=== PATIENT | female | born 2000 | race Caucasian/White ===

== ENCOUNTER 2024-05-09 11:48 | Outpatient (REF) | payer MEDICAID, SELFPAY ==
[2024-05-09 13:28] LABS: MANUAL DIFF FLAG NO
[2024-05-09 13:33] LABS: Basophils Percent Auto 0.5 % (0-2); Eosinophils Absolute Auto 0.2 X10*3/uL (0.0-0.4); Eosinophils Percent Auto 1.9 % (0-4); Hematocrit 38.4 % (37.0-47.0); Hemoglobin 11.8 g/dl (12.0-16.0); Imm Gran Abs Auto 0.03 X10*3/uL (0.00-0.03); Imm Gran Pct Auto 0.4 % (0.0-0.4); Lymphocytes Absolute Auto 2.7 X10*3/uL (1.2-4.9); Lymphocytes Percent Auto 35.5 % (20-40); Mean Corpuscular HGB Conc 30.7 g/dl (31.0-35.0); Mean Corpuscular Hemoglobin 23.8 pg (27.0-33.0); Mean Corpuscular Volume 77.6 fL (80.0-98.0); Mean Platelet Volume 9.8 fL (9.4-12.3); Monocytes Absolute Auto 0.6 X10*3/uL (0.1-1.2); Monocytes Percent Auto 7.3 % (2-11); Neutrophils Absolute Auto 4.2 x10*3/uL (2.0-8.3); Neutrophils Percent Auto 54.4 % (45-73); Platelet Count 331 X10*3/uL (160-400); Red Blood Count 4.95 X10*6/uL (4.20-5.50); Red Cell Distribution Width 19.6 % (11.0-16.0); White Blood Count 7.7 X10*3/uL (4.8-10.8)
[2024-05-09 13:46] LABS: Estimated Average Glucose 111 mg/dL; Hemoglobin A1C 108.3665 umol/L; Hemoglobin A1c % 5.5 % (<6.0)
[2024-05-09 14:02] LABS: Alanine Aminotransferase 43 U/L (0-31); Albumin Level 4.1 g/dL (3.5-5.0); Alkaline Phosphatase 100 U/L (39-117); Anion Gap 11 (12-20); Aspartate Amino Transferase 28 U/L (5-31); Bilirubin Total 0.5 mg/dL (0.0-1.0); Blood Urea Nitrogen 12 mg/dL (9-16); Calcium 9.9 mg/dL (8.4-10.2); Carbon Dioxide 26 mmol/L (22-29); Chloride 106 mmol/L (96-108); Cholesterol 160 mg/dL (<200); Estimated Glomerular Filt Rate > 60; Glucose Random 90 mg/dL (60-115); HDL Cholesterol 52 mg/dL (>40); LDL Cholesterol Calculated 96 mg/dL (<100); Potassium 3.9 mmol/L (3.3-5.1); Sodium 139 mmol/L (135-145); Total Protein 7.3 g/dL (6.5-8.0); Triglycerides 61 mg/dL (<150)
[2024-05-09 14:05] LABS: Thyroid Stimulating Hormone 1.22 uIU/mL (0.32-4.0)
== END 2024-05-09 11:49 | disposition home or self-care (01) ==
LOC: HO.10HDL 11:48
PROVIDERS: Visit Provider Internal Medicine
DX: B36.0 Pityriasis versicolor (principal); D64.9 Anemia, unspecified; E66.01 Morbid (severe) obesity due to excess calories
CPT/HCPCS: 36415; 80053; 80061; 83036; 84443; 85025

== ENCOUNTER → 2024-10-12 13:14 | Outpatient (BNVA) | payer MEDICAID, SELFPAY | PROVIDERS: PCP Family Medicine; Visit Provider Surgery ==

== ENCOUNTER 2024-10-22 08:03 | Outpatient (AMB) | payer MEDICAID, SELFPAY ==
--- NOTE | 2024-10-22 12:53 | A.OFFVIS_ITS ---
VS Expanded 10/22/24 13:02 Height 5 ft 4.5 in Weight 293 lb BMI 49.5 Body Fat % 47.8 Body Fat Mass 140 Fat Free Mass 153 Visceral Fat Rating 14 Body Water % 37.5 Body Water Mass 110 Basal Metabolic Rate/Score 2,242 Intake Visit Reasons: [employer] BMI 49.5 Allergies No Known Allergies Allergy (Verified 10/22/24 12:53) Medication List - Last Reconciled 10/22/24 by Brandon Fernandez MD famotidine 20 mg PO DAILY phentermine 37.5 mg PO DAILY HPI HPI [employer] BMI 49.5: Details: Start time: 12.52pm, End time: 1.37pm ?I spent 40 minutes speaking with the patient on the phone plus an additional 5 minutes reviewing and updating records for a total of 45 minutes HPI Comments Details: Previous weight loss efforts: Phentermine lost 20lbs Wakes up: 7.30am, Sleeps: 11am Breakfast: skips Lunch: none Dinner: 4pm (rice, beans, chicken) Snacks: none Exercise: none Fluids: Coffee/tea: none, soda: none, juice: 1/day, ETOH: 2/wk (Tequila 3 shots, 4-5 mixed drinks with orange juice per day) PFSH Medical History (Updated 10/22/24 @ 12:57 by Brandon Fernandez MD) Anxiety GERD (gastroesophageal reflux disease) Morbid obesity History of rupture of uterus Surgical History (Updated 10/12/24 @ 13:50 by Josie Valentine CMA) Hx of hand surgery Hx of section Hx of wisdom tooth extraction Hx of cholecystectomy Family History (Updated 10/12/24 @ 13:52 by Josie Valentine CMA) Mother Endometriosis Father Family history unknown Son No problems noted. Son No problems noted. Social History (Updated 10/12/24 @ 13:52 by Josie Valentine CMA) Alcohol intake: current Alcohol intake frequency: holidays/special occasions only Tobacco use type: Smokeless Tobacco e-Cigarette/Vaping Use: Currently Using Telehealth Telehealth Telehealth Platform: Telephone Location of provider rendering services: practice address Location of patient: address on file Patient Identification confirmed using: Name, : Yes Telehealth method: voice only Patient verbally consented to treatment: Yes Patient verbally consented to billing insurance company: Yes Patient informed of any privacy concerns related to visit: Yes Minutes spent on Phone/Video with Pt.: 45 Assessment & Plan Assessment & Plan (1) Morbid obesity: Code(s): E66.01 - Morbid (severe) obesity due to excess calories Category: Medical Plan: 1.? Plan for lap sleeve gastrectomy. If diaphragmatic or ventral hernias are present at time of surgery, these will be repaired laparoscopically as well. I emphasized the importance of close follow-up, adherence to instructions and good communication. The surgery does not replace the need to change your lifestlyle which is the cause of the obesity problem. The surgery provides the motivation to try again to change your lifestyle, it reduces the appetite and make the transition to a better lifestyle easier and doubles the amount of weight you would lose compared to doing the lifestyle change without the surgery. You will need to be on a liquid diet with protein shakes for 2 weeks before surgery to maximize weight loss and boost your nutritional status to recover better from surgery and also for the first two weeks after surgery to let the stomach heal before we introduce other foods. After the first 2 weeks we will introduce protein bars and soft foods like scrambled eggs, cottage cheese and yogurt and after the 6th week will introduce meat, fish and cooked vegetables in small amounts. Over time you should be able to eat everything in small amounts. Side effects like nausea, vomiting, heartburn or abdominal pain are not common in the practice unless you are not following in the practice. This operation requires lifetime commitment to following in our practice and communication with me. You will much less weight and experience side effects if you don?t communicate or not following in the practice. Complications are rare and in our practice is about 1/10 of the national average. However, you can develop bleeding that may require transfusion (hasn?t happened for year in the practice), you may from complications (we did not have any deaths in the practice) and infections. Infections are usually a result of breakdown in communication or not understanding or following directions correctly. They are difficult to treat, they can happen during the first 6 weeks, they may require to be in the hospital for weeks or even months, not being able to eat by mouth and you may have drains and surgeries to try and correct the issue. Other risks and complications include possible conversion to an open procedure, leaks, small bowel obstruction, blood clots, cardiac, or pulmonary complications, as jail complications such as ulcers, insufficient weight loss and vitamin deficiencies. 2. Nutritional counseling. Start with 2 CELEBRATE REBUILD protein (buy at hospital's gift shop) shakes (ONE scoop EACH in 8oz low fat unsweetened almond milk each) at 9am-11am and 12pm-2pm, 1 protein bar (CELEBRATE protein bars, buy at [facility] [employer] [facility]) at 3pm-5pm, dinner at 6pm (10 forks of protein and 10 forks of salad/vegetables) AND one more protein bar after dinner at 8pm-10pm. So you do 2 protein shakes, 2 protein bars and one meal per day. Meal to include lean meat (beef, fish, pork, turkey, chicken), or latvian yogurt, or egg whites, or beans with a salad with olive oil and fruits (berries, pears, apples, kiwi). Avoid salt, breads, potatoes, rice, pasta, desserts. 3. Each shake would be drunk slowly, like coffee in a period of 2 hours. 4. Cut each bar in 4 pieces and eat each piece in 30min ?to make each bar last 2 hours. 5. I emphasized the importance of measuring accurately the food portion and measure it when serving the food in plate 6. The meal portions include 10 full-size forks of meat and 10 full-size forks of salad. You always eat the meat portion but you can replace up to 5 forks for salad/vegetables with rice, potatoes or pasta, or a fruit ?if you like. The less you do it the better weight loss will be. 7. One full-size fork is what it can be scooped on the fork without falling aside and not what can be bit with the fork. Use regular forks like those you find in a typical restaurant. 8.? Please buy the body composition scale we discussed and send me weight measurements as soon as possible and then once a week. Always include your diet and exercise plan. 9. Start stationary bike at a resistance level of 4.0 Increase level by 1.0 every 3 min to a max level of 10.0. Stay at this level for 3 min and then return to level 4.0 and repeat same steps until 400 calories are burned, 5 days per week. Goal is to burn 2000 calories per week on exercise 10. The best choice would be to purchase a stationary bike, elliptical or treadmill at home that can track calories. Let me know if you do so I can give you an exercise plan. 11.?It is important of avoiding and for at least 18 months postoperatively and has been discussed at the infosession. 12. Goal is to lose at least 1.5-2lbs per week 13. Goal to lose 10% of your weight before surgery, which is about 29lbs. Ultimate weight goal: 264lbs before surgery 14. Please follow the diet plan exactly without any change. If you don't like something about the plan or you feel hungry you need to communicate with me so I can help you revise the plan. You should not change the plan yourself. 15. To be scheduled for EGD on 11/01/2024 due to the history of GERD. The possibility of biopsies was discussed. Patient needs to avoid use of NSAIDs and aspirin for 1 week prior to EGD. You must be on liquids only the day before your endoscopy. Risks of perforation and bleeding was discussed with the patient. This will be an outpatient procedure with IV sedation. Orders: Orders Insulin Today E66.01 - Morbid (severe) obesity due to excess calories, K21.9 - Gastro-esophageal reflux disease without esophagitis Hemoglobin A1c Today E66.01 - Morbid (severe) obesity due to excess calories, K21.9 - Gastro-esophageal reflux disease without esophagitis H Pylori Breath Test Today E66.01 - Morbid (severe) obesity due to excess calories, K21.9 - Gastro-esophageal reflux disease without esophagitis Complete Blood Count Auto Diff Today E66.01 - Morbid (severe) obesity due to excess calories, K21.9 - Gastro-esophageal reflux disease without esophagitis Lipid Panel Today E66.01 - Morbid (severe) obesity due to excess calories, K21.9 - Gastro-esophageal reflux disease without esophagitis IRON PROFILE Today E66.01 - Morbid (severe) obesity due to excess calories, K21.9 - Gastro-esophageal reflux disease without esophagitis Vitamin B12 and Folate Today E66.01 - Morbid (severe) obesity due to excess calories, K21.9 - Gastro-esophageal reflux disease without esophagitis C Reactive Protein Today E66.01 - Morbid (severe) obesity due to excess calories, K21.9 - Gastro-esophageal reflux disease without esophagitis Vitamin B1 Today E66.01 - Morbid (severe) obesity due to excess calories, K21.9 - Gastro-esophageal reflux disease without esophagitis US abdomen comp w elastography Today E66.01 - Morbid (severe) obesity due to excess calories, K21.9 - Gastro-esophageal reflux disease without esophagitis XR chest 2V Today E66.01 - Morbid (severe) obesity due to excess calories, K21.9 - Gastro-esophageal reflux disease without esophagitis Comprehensive Met. Panel Today E66.01 - Morbid (severe) obesity due to excess calories, K21.9 - Gastro-esophageal reflux disease without esophagitis Zinc Today E66.01 - Morbid (severe) obesity due to excess calories, K21.9 - Gastro-esophageal reflux disease without esophagitis Vitamin A Today E66.01 - Morbid (severe) obesity due to excess calories, K21.9 - Gastro-esophageal reflux disease without esophagitis TSH reflex Free T4 Today E66.01 - Morbid (severe) obesity due to excess calories, K21.9 - Gastro-esophageal reflux disease without esophagitis Ferritin Today E66.01 - Morbid (severe) obesity due to excess calories, K21.9 - Gastro-esophageal reflux disease without esophagitis Vitamin D 25-OH Total Today E66.01 - Morbid (severe) obesity due to excess calories, K21.9 - Gastro-esophageal reflux disease without esophagitis ECG 12 lead EKG Today E66.01 - Morbid (severe) obesity due to excess calories, K21.9 - Gastro-esophageal reflux disease without esophagitis FL upper GI w air Today E66.01 - Morbid (severe) obesity due to excess calories, K21.9 - Gastro-esophageal reflux disease without esophagitis Referrals Behavioral Health Referral E66.01 - Morbid (severe) obesity due to excess calories, K21.9 - Gastro-esophageal reflux disease without esophagitis Nutrition/Dietitian Referral E66.01 - Morbid (severe) obesity due to excess calories, K21.9 - Gastro-esophageal reflux disease without esophagitis
[2024-10-22 13:02] VITALS: BMI 49.5
== END 2024-10-22 13:38 | disposition home or self-care (01) ==
LOC: HO.HBS 08:03
PROVIDERS: PCP Family Medicine; Visit Provider Surgery
DX: E66.813 Obesity, class 3 (principal); Z68.42 Body mass index [BMI] 45.0-49.9, adult
CPT/HCPCS: 98010

== ENCOUNTER 2024-10-31 08:25 | Day surgery (SDC) | payer MEDICAID, SELFPAY ==
--- NOTE | 2024-10-30 09:08 | P.CONAN_ITS ---
Documented by User: Yanet Regan NP 10/30/24 09:08 HPI - Anesthesia Eval Consult details Narrative: 24yo F for Upper Endoscopy [facility] Active Problems Active Problems: All Active Problems Anxiety (Acute) GERD (gastroesophageal reflux disease) (Acute) Morbid obesity (Acute) Past Medical History Medical History Anxiety GERD (gastroesophageal reflux disease) Morbid obesity History of rupture of uterus Family History Family History Mother Endometriosis Father Family history unknown Son No problems noted. Son No problems noted. Surgical History Surgical History Hx of hand surgery Hx of section Hx of wisdom tooth extraction Hx of cholecystectomy Social History Social History Alcohol intake: current Alcohol intake frequency: holidays/special occasions only Patient Tobacco Use Status: Never used Tobacco Tobacco use type: Smokeless Tobacco e-Cigarette/Vaping Use: Currently Using Use of substances other than those prescribed or required for medical reasons: No Are you DNR?: No Advance Directives: No Advance Directives Information Provided: Yes Meds Allergies Allergy/AdvReac Type Severity Reaction Status Date / Time No Known Allergies Allergy Verified 10/31/24 08:48 Home Medications ?Medication ?Instructions ?Recorded ?Confirmed ?Last Taken ?Type famotidine 20 mg tablet 20 mg PO DAILY 10/22/24 10/31/24 Unknown History phentermine 37.5 mg capsule 37.5 mg PO DAILY 10/22/24 10/31/24 Unknown History Assessment and Plan Assessment Anesthesia Assessment: Chart Reviewed Documented by User: Valentina Valdovinos MD 10/31/24 09:26 PMFSH Past Medical History Medical History Anxiety GERD (gastroesophageal reflux disease) Morbid obesity History of rupture of uterus Family History Family History Mother Endometriosis Father Family history unknown Son No problems noted. Son No problems noted. Surgical History Surgical History Hx of hand surgery Hx of section Hx of wisdom tooth extraction Hx of cholecystectomy History of Problems with Anesthesia: No Social History Social History Alcohol intake: current Alcohol intake frequency: holidays/special occasions only Patient Tobacco Use Status: Never used Tobacco Tobacco use type: Smokeless Tobacco e-Cigarette/Vaping Use: Currently Using Use of substances other than those prescribed or required for medical reasons: No Are you DNR?: No Advance Directives: No Advance Directives Information Provided: Yes Meds Allergies Allergy/AdvReac Type Severity Reaction Status Date / Time No Known Allergies Allergy Verified 10/31/24 08:48 Home Medications ?Medication ?Instructions ?Recorded ?Confirmed ?Last Taken ?Type famotidine 20 mg tablet 20 mg PO DAILY 10/22/24 10/31/24 Unknown History phentermine 37.5 mg capsule 37.5 mg PO DAILY 10/22/24 10/31/24 Unknown History Exam Airway Mallampati Class: III TM Dist: >3cm Neck ROM: Full Loose/Missing/Broken Teeth: No Heart: RRR Lungs: CTA Assessment and Plan Assessment Anesthesia Assessment: Anesthesia Plan Discussed Final Anesthetic Review History of Problems with Anesthesia: No NPO: Yes ASA Class: III Final Preanesthetic Review: Meds/Allgs Chart Reviewed, Consent Obtained/Reviewed and Anes Risks/Benef Reviewed Patient Risk: Intermediate Procedure Risk: Intermediate Anesthetic Plan Anesthetic Plan: MAC: Disposition: Standard PACU
[2024-10-31 08:41] VITALS: BMI 49.7
[2024-10-31 08:48] LABS: UPreg QC Valid YES; Urine Pregnancy NEGATIVE (NEGATIVE)
[2024-10-31 09:07] VITALS: BP 105/61; PULSE 86; RESP 16; TEMP 36.3; O2SAT 97
[2024-10-31] MEDS: Lactated Ringers 1,000 ML 100 ML IVCONT (09:20)
--- NOTE | 2024-10-31 09:23 | MHC.SHP ---
Pre-Procedural Eval Section A - 24 Hr Update-Section A only Date of Service: 10/31/24 The patient is an INPATIENT: No The patient has been examined within 24 hours of the surgical procedure. The History & Physical has been completed within 30 days and I have reviewed it.: Yes Section B - Complete if H&P > 30 days Chief Complaint: Morbid (severe) obesity due to excess calories Details of Present Illness: GERD Relevant Family History (Specify if Yes): No Relevant Social History: None Present Medications: None Medical History: No relevant PMH History of Previous Operations: No relevant previous surgery Allergies: Allergies Allergy/AdvReac Type Severity Reaction Status Date / Time No Known Allergies Allergy Verified 10/31/24 08:48 Review of Systems Sugical H&P ROS: Negative: Constitution, Cardiovascular, Respiratory, Neurological, Psychiatric, Hem-Onc, Allergic/Immunologic, Gastrointestinal, Genitourinary, Musculoskeletal, Integumentary, Endocrine and Eyes/Ears/Nose/Throat Exam Surgical H&P Exam: Normal: HEENT, Normal: Heart, Normal: Lungs, Normal: Extremities, Normal: Abdomen, Normal: Skin and Normal: Neurological Plan Diagnosis/Plan: Unchanged (EGD to assess etiology of GERD. Risks of bleeding and perforation were discussed with the patient and she is in agreement with the plan.) I have reviewed the history and physical and performed a pertinent physical examination on my patient. No changes have occurred unless specified. Time Spent With Patient Time: Total time managing care of this patient today ____ minutes.
--- NOTE | 2024-10-31 09:26 | P.BOP_ITS ---
Brief Operative Note Date of Service: 10/31/24 Pre-op diagnosis: GERD Post-op diagnosis: same (& gastritis) Procedure: PROCEDURE DATE: 10/31/2024 PREOPERATIVE DIAGNOSIS: GERD POSTOPERATIVE DIAGNOSIS: ?Same as above. 1) gastritis PROCEDURE: [id number] with biopsies Surgeon: ?David Fernandez M.D.. Ph.D. Office Services Specialist: None ? Anesthesia: IV sedation Estimated blood loss: ?Minimal FINDINGS AND PROCEDURE: ? OPERATIVE INDICATIONS: ?The patient is a 24 year old female known to me who is interested in bariatric surgery. The patient has GERD. Based on this information I recommended an upper endoscopy to evaluate the patient's symptoms. Risks and complications of the surgery were discussed with the patient in advance particularly the possibility of perforation or bleeding that may require surgical intervention. The patient understood the risks and was in agreement with the plan. ? PROCEDURE: After informed consent was obtained by the patient, the patient was ?transferred to the Operating Room and was placed in the supine position.? After successful induction of IV sedation, a mouth block was inserted and the patient was placed in the left lateral decubitus position. An upper endoscopy was performed next, the oropharynx and esophagus appeared within the normal limits. There was no hiatal hernia. The z-line was smooth. Two biopsies were obtained from the distal esophagus 2-3 cm proximal to the GE junction and two additional biopsies from the GE junction. The stomach was entered and it appeared to be of normal size. There was gastritis throughout the stomach with erythema and some bile. There was no stricture or ulcer. A biopsy was obtained from the gastric fundus and the antrum. No significant bleeding was noted from any of the biopsy sites. Retroflexion of the scope confirmed a normal GE junction. The scope was then advanced into the duodenum which appeared to be normal as well. At that point the duodenum ?and the stomach were decompressed and the scope was withdrawn from the patient's mouth. The patient extubated and was transferred in stable condition to the Recovery Room for further care. I was present and performed all steps of the procedure. There were no residents to assist with this case. David Fernandez M.D., Ph.D. Surgeon: Brandon Fernandez MD Anesthesia: MAC Was an Office Services Specialist used for this Procedure?: No Estimated blood loss (mL): 0 IV fluids (mL): 400 Urine output (mL): 0 (No [place] to record output) Pathology: other (1) antrum x1, 2) fundus x1, 3) GE junction x2, 4) distal esophagus x2) Condition: stable Disposition: PACU
[2024-10-31 10:02] VITALS: BP 100/54; PULSE 92; RESP 18; TEMP 36.1; O2SAT 100
[2024-10-31 10:17] VITALS: BP 104/58; PULSE 77; RESP 16; TEMP 36.1; O2SAT 99
== END 2024-10-31 11:05 | disposition home or self-care (01) ==
PROVIDERS: Nurse Practitioner; PCP Internal Medicine; Visit Provider Surgery
PROC: 0DJ08ZZ Inspection of Upper Intestinal Tract, Via Natural or Artificial Opening Endoscopic (ICD-10-PCS; CPT 43235; principal; 2024-10-31 10:10)
DX: K21.9 Gastro-esophageal reflux disease without esophagitis (principal); E66.01 Morbid (severe) obesity due to excess calories; Z68.42 Body mass index [BMI] 45.0-49.9, adult; K29.50 Unspecified chronic gastritis without bleeding; F41.9 Anxiety disorder, unspecified; Z90.49 Acquired absence of other specified parts of digestive tract; Z79.899 Other long term (current) drug therapy; Z87.42 Personal history of other diseases of the female genital tract; Z98.890 Other specified postprocedural states
CPT/HCPCS: 43239; 81025; 88305; 88313; 88342

== ENCOUNTER → 2024-10-31 08:25 | Outpatient (BNV) | payer MEDICAID, SELFPAY | PROVIDERS: PCP Internal Medicine; Visit Provider Surgery | DX: K21.9 Gastro-esophageal reflux disease without esophagitis (principal); K29.70 Gastritis, unspecified, without bleeding | CPT/HCPCS: 43239 ==

== ENCOUNTER → 2024-11-05 10:06 | Outpatient (AMB) | payer OTHER, SELFPAY ==
--- NOTE | 2024-11-05 10:05 | MHC.WMTHER ---
Intake Intake Visit Reasons: TV BH Intake Allergies No Known Allergies Allergy (Verified 10/31/24 08:48) PFSH Medical History Anxiety GERD (gastroesophageal reflux disease) Morbid obesity History of rupture of uterus Surgical History Hx of hand surgery Hx of section Hx of wisdom tooth extraction Hx of cholecystectomy Family History Mother Endometriosis Father Family history unknown Son No problems noted. Son No problems noted. Social History Alcohol intake: current Alcohol intake frequency: holidays/special occasions only Patient Tobacco Use Status: Never used Tobacco Tobacco use type: Smokeless Tobacco e-Cigarette/Vaping Use: Currently Using Behavioral Health Assessment Weight Management Therapy Therapy Notes Details PT is a 24 years old female, who presents for initial visit to complete BH assessment as part of surgical weight loss program. Presenting Concerns Referral Source Initially referred for WMP by her PCP. WMP Provider. Reason for referral Completion of behavioral health assessment as part of process for weight-loss surgery. Precipitating Event Obesity. Living Situation Current Living Situation Rent At risk of losing current housing? No Satisfied with current living situation? Yes Comments PT lives with her 2 children. Food/Weight/Diet Expectations of change The initial goal to lose 10% of your weight before surgery, which is about 29 lbs. Ultimate weight goal: 264lbs before surgery PT started weight as of 10/12/2024: 293Lbs Most recent weight: hasn't weighed. The scale hasn't arrived yet. PT is implementing the following: Current meal plan: 2 protein shakes, 2 protein bars, and one meal per day. Hasn't started. Exercise plan: Stationary bike. History/Relationship with food Example of meals before starting the program: Breakfast: Lunch: Dinner: Snacks: Drinks/Liquids: History/Relationship with weight In the last 10 years, the patient's Lowest weight was and highest Social History Family history and relationship Single mother of 2. PT has 3 siblings on mom's side and 4 from dad's side. Parents are alive. PT reports she is very close to her mother and to siblings on mom's side. and States overall good family dynamics. Parental/Familial medical office asst obligations 2 children, she has a 2 year old and a 1 year old. Developmental history and status None. Currently WNL Social support Mother, grandmother, and providers with weight-loss surgery. Also mom, grandmother and siblings with any social issue, as well of kids' father's sister. Community support PCP. Therapist. Synagogue/Spirituality None. Cultural/Ethnic information . [place] background. Legal Involvement and History Current or historical involvement with the legal system? None reported. 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 Preferred learning style Learn by doing Currently enrolled in educational program? Yes (working towards her Associate degree in [employer].) Interested in further educational program? No Educational Interests/Skills Become a mortician. Employment Employment Status School (full-time remote.) and Other (in the process of getting a new job. ) Wants help to find employment? No Meaningful activities Family activities. Financial Situation Describe current financial situation Comfortable Financial assistance? Food Dola and Other ([facility], [employer] - [place]. ) Service Service? No Mental Health and Addiction Treatment Current/Past substance abuse? No Comments Alcohol: 1-2 times every 2 weeks. can have 5 -6 drinks. Cigarettes/Tobacco: PT vapes, uses a flavor nicotine based. Cannabis/Edibles: does Edibles 2 times at month. Current/Past addictive behavior concerns? No Psychiatric history The patient currently attends online counseling sessions every two weeks through the [facility] They began these counseling services in June 2024 to address anxiety and stress. The patient denies being prescribed any medication for their mental health concerns. The patient reports no history of crisis or inpatient treatment for mental health issues. There are no current concerns regarding suicidal ideation, self-harm, or harm to others. Medical and Physical Health Summary Additional Medical History not covered in history None additional. Sexual History concerns None reported. Physical exam in the last year? Yes Pain Screening Current pain? No Pain in the last few months? No Questionnaires PHQ-9 Over the last 2 weeks, how often have you been bothered by any of the following problems? 1. Little interest or pleasure in doing things: not at all 2. Feeling down, depressed, or hopeless: several days 3. Trouble falling or staying asleep, or sleeping too much: several days 4. Feeling tired or having little energy: several days 5. Poor appetite or overeating: several days 6. Feeling bad about yourself - or that you are a failure or have let yourself or your family down: not at all 7. Trouble concentrating on things, such as reading the newspaper or watching television: not at all 8. Moving or speaking so slowly that other people could have noticed. Or the opposite - being so fidgety or restless that you have been moving around a lot more than usual: not at all 9. Thoughts that you would be better off or of hurting yourself in some way: not at all Total score: 4 Depression Screening Interpretation: Positive (New PHQ-9 will be administered at next visit. ) Depression Screening Follow-up: In treatment Depression Screening Done: Yes Source: Developed by Drs. Wang Welch, Tawanna White, Nadir Khan and colleagues, with an educational sergio from [employer]. Binge Eating Scale Group 1 A. I don't feel self-conscious about my wt. or body size when I'm with others. B. I feel concerned about how I look to others, but it normally does not make me fell disappointed with myself C. I do get self-conscious about my appearance and wt. which makes me feel disappointed in myself. D. I feel very self-conscious about my wt. and frequently I feel intense shame and disgust for myself. I try to avoid social contacts because of my self-consciousness. Response Group 1: A Group 2 A. I don't have any difficulty eating slowly in the proper manner. B. Although I seem to gobble down foods, I don't end up feeling stuffed because of eating to much. C. At times, I tend to eat quickly and then, I feel uncomfortably full afterwards. D. I have the habit of bolting down my food, without really chewing it. When this happens I usually feel uncomfortably stuffed because I've eaten to much. Response Group 2: A Group 3 A. I feel capable to control my eating urges when I want to. B. I feel like I have failed to control my eating more than the average person. C. I feel utterly helpless when it comes to feeling in control of my eating urges. D. Because I feel so helpless about controlling my eating I have become very desperate about trying to get control. Response Group 3: B Group 4 A. I don't have the habit of eating when I'm bored. B. I sometimes eat when I'm bored, but often I'm able to get busy and get my mind off food. C. I have a regular habit of eating when I'm bored, but occasionally, I can use some other activity to get my mind off eating. D. I have a strong habit of eating when I'm bored. Nothing seems to help me breath the habit. Response Group 4: C Group 5 A. I'm usually physically hungry when I eat something. B. Occasionally, I eat something on impulse even though I really am not hungry. C. I have the regular habit of eating foods, that I might not really enjoy, to satisfy a hungry feeling even though physically, I don't need the food. D. Although I'm not physically hungry, I get a hungry feeling in my mouth that only seems to be satisfied when I eat a food, like sandwich, that fills my mouth. Sometimes, when I eat the food to satisfy my mouth hunger, I then spit the food out so I won't gain weight. Response Group 5: B Group 6 A. I don't feel any guilt or self-hate after I overeat. B. After I overeat, occasionally I feel guilt or self-hate. C. Almost all the time I experience strong guilt or self-hate after I overeat. Response Group 6: B Group 7 A. I don't lose total control of my eating when dieting even after periods when I overeat. B. Sometimes when I eat a forbidden food on a diet, I feel like I blew it and eat even more. C. Frequently, I have the habit of saying to myself, I've blown it now, why not go all the way, when I overeat on a diet. When that happens I eat more. D. I have a regular habit of starting a strict diets for myself but I break the diets by going on an eating binge. My life seems to be either a feast or famine. Response Group 7: B Group 8 A. I rarely eat so much food that I feel uncomfortably stuffed afterwards. B. Usually about once a month, I each such a quantity of food, I end up feeling very stuffed. C. I have regular periods during the month when I eat large amounts of food, either at mealtime or at snacks. D. I eat so much food that I regularly feel quite uncomfortable after eating and sometimes a bit nauseous. Response Group 8: B Group 9 A. My level of calorie intake does not go up very high or go down very low on a regular basis. B. Sometimes after I overeat, I will try to reduce my caloric intake to almost nothing to compensate for the excess calories I've eaten. C. I have a regular habit of overeating during the night. It seems that my routine is not to be hungry in the morning but overeat in the evening. D. In my adult years, I have had week-long periods where I practically starve myself. This follows periods when I overeat. It seems I live a life of either feast or famine. Response Group 9: D Group 10 A. I usually am able to stop eating when I want to. I know when enough is enough. B. Every so often, I experience a compulsion to eat which I can't seem to control. C. Frequently, I experience strong urges to eat which I seem unable to control, but at other times I can control my eating urges. D. I feel incapable of controlling urges to eat. I have a fear of not being able to stop eating voluntarily. Response Group 10: A Group 11 A. I don't have any problem stopping eating when I feel full. B. I usually can stop eating when I feel full but occasionally overeat leaving me feeling uncomfortably stuffed. C. I have a problem stopping eating once I start and usually I feel uncomfortably stuffed after I eat a meal. D. Because I have a problem not being able to stop eating when I want, I sometimes have to induce vomiting to relieve my stuffed feeling. Response Group 11: B Group 12 A. I seem to eat just as much when I'm with others, Family social gatherings as when I'm by myself. B. Sometimes, when I'm with other persons, I don't eat as much as I want to eat because I'm self-conscious about my eating. C. Frequently, I eat only a small amount of food when others are present, because I'm very embarrassed about my eating. D. I feel so ashamed about overeating that I pick times to overeat when I know no one will see me. I feel like a closet eater. Response Group 12: C Group 14 A. I don't think much about trying to control unwanted eating urges. B. At least some of the time, I feel my thoughts are pre-occupied with trying to control my eating urges. C. I feel that frequently I spend much time thinking about how much I ate or about trying not to eat anymore. D. It seems to me that most of my waking hours are pre-occupied by thoughts about eating or not eating. I feel like I'm constantly struggling not to eat. Response Group 14: B Group 15 A. I don't think about food a great deal. B. I have strong craving for food but they last only for brief periods of time. C. I have days when I can't seem to think about anything else but food. D. Most of my days seem to be pre-occupied with thoughts about food. I feel like I live to eat. Response Group 15: B Group 16 A. I usually know whether or not I'm physically hungry. I take the right portion of food to satisfy me. B. Occasionally, I feel uncertain about knowing whether or not I'm physically hungry. A these times it's hard to know how much food I should take to satisfy me. C. Even though I might know how many calories I should eat, I don't have any idea what is a normal amount of food for me. Response Group 16: B Binge Eating Score: 16 Score less than 17 Minimal Risk Score between 18-26 Moderate Risk Score between 27-46 High Risk Assessment & Plan Assessment & Plan (1) Adjustment disorder with anxiety: Code(s): F43.22 - Adjustment disorder with anxiety Plan PT will return in 2 weeks to continue assessment. Next bita: 11/19/2024 at 10am, [facility] Telehealth Telehealth Telehealth Platform: [employer] Location of provider rendering services: other Location of patient: address on file Patient Identification confirmed using: Name, : Yes Telehealth method: voice only Patient verbally consented to treatment: Yes Patient verbally consented to billing insurance company: Yes Patient informed of any privacy concerns related to visit: Yes Minutes spent on Phone/Video with Pt.: 55 Coding Level of Care Code New Pt Tele Psy Diag Eval (34056) Patient Type New Diagnoses Adjustment disorder with anxiety F43.22 Time Spent (min) 55
== END ==
PROVIDERS: PCP Internal Medicine; Visit Provider Counselor Mental Health
DX: F43.22 Adjustment disorder with anxiety (principal)
CPT/HCPCS: 90791

== ENCOUNTER 2024-11-08 10:31 | Outpatient (REF) | payer OTHER, MEDICAID, SELFPAY ==
--- NOTE | ~2024-11-08 | XR_ITS ---
EXAMINATION: XR CHEST 2 VIEWS HISTORY: E66.01 - Morbid (severe) obesity due to excess calories COMPARISON: There are no prior studies for comparison. FINDINGS: PA and lateral views of the chest are submitted. The lungs are expanded and clear. There is no pleural effusion, pneumothorax, or pulmonary vascular congestion. The heart is normal in size. The bones are intact. XR/XR chest 2V IMPRESSION: Normal examination of the chest. Electronically signed by: Wang Tamayo MD 11/08/2024 02:33 PM EST
--- NOTE | ~2024-11-08 | US_ITS ---
EXAMINATION: US ABDOMEN COMPLETE WITH LIVER ELASTOGRAPHY HISTORY: E66.01 - Morbid (severe) obesity due to excess calories TECHNIQUE: Real-time grayscale ultrasound imaging of the abdomen was performed and images were reviewed. COMPARISON: There are no prior studies for comparison. FINDINGS: Liver: The liver is normal in size and demonstrates homogeneous echotexture. No focal mass or intrahepatic biliary ductal dilatation is identified. There is normal hepatopedal flow in the portal vein. Ultrasound elastography of the liver was performed with 10 separate measurements of the liver parenchyma with the patient in the supine position. Measurements were obtained approximately 2 cm below Zoila's capsule and perpendicular to the capsule. Images are of satisfactory quality. The median shear wave velocity is 1.50 m/s. The interquartile range/median (IQR/median) is 0.15. Gallbladder and biliary tree: The gallbladder is surgically absent. The common bile duct is normal in caliber measuring 3 mm. Kidneys: The right kidney measures 10.6 cm in length and demonstrates a 4 mm nonobstructing lower pole calculus, but is otherwise unremarkable. The left kidney measures 10.4 cm in length and is unremarkable. Pancreas: The pancreatic head, neck, and body are unremarkable. The pancreatic tail is obscured by bowel gas. Spleen: The spleen is normal in size and contour, measuring 9.9 cm in length. Abdominal aorta and inferior vena cava: The visualized portions of the abdominal aorta and inferior vena cava are normal in caliber. There is no free fluid in the abdomen. US/US abdomen comp w elastography IMPRESSION: 4 mm nonobstructing right renal calculus. The median shear wave velocity is 1.50 m/s, corresponding to a median liver stiffness of 6.82 kPa. The IQR/median value is 0.15. This is indicative of a quality data set. Findings are indicative of a low elastography value which rules out advanced chronic liver disease in asymptomatic patients. REFERENCE: Society of Radiologists in Ultrasound Liver Stiffness Thresholds (2020): LIVER STIFFNESS THRESHOLDS: *Shear wave velocity less than 1.3 m/s (Liver Stiffness equal or less than 5 kPa): High probability of being normal. *Shear wave velocity less than 1.7 m/s (Liver Stiffness less than 9 kPa): In the absence of other known clinical signs, rules out compensated advanced chronic liver disease. *Shear wave velocity between 1.7-2.1 m/s (Liver Stiffness 9-13 kPa): Suggestive of compensated advanced chronic liver disease but need further test for confirmation. *Shear wave velocity between 2.1-2.4 m/s (Liver Stiffness 13-17 kPa): Rules in compensated advanced chronic liver disease. *Shear wave velocity greater than 2.4 m/s (Liver Stiffness over 17 kPa): Suggestive of clinically significant portal hypertension. QUALITY OF DATA SET: *IQR/Median value equal or less than 0.15 implies a quality data set. *IQR/Median value over 0.15 implies a poor quality data set. SIGNIFICANT CHANGE FROM PRIOR EXAM: Significant change if liver stiffness measurement is 10% or greater from prior exam. OTHER CONSIDERATIONS: The stage of liver fibrosis may be overestimated in the setting of acute hepatitis, liver inflammation, elevated liver function tests, hepatic vascular congestion, obstructive cholestasis, non-fasting state, and infiltrative diseases such as amyloidosis and lymphoma. In some patients with NAFLD, the liver stiffness thresholds for compensated advanced chronic liver disease may be lower. In causes other than viral hepatitis and NAFLD, liver stiffness thresholds are not well established. Electronically signed by: Wang Tamayo MD 11/08/2024 12:32 PM [facility] [place]
--- NOTE | 2024-11-08 11:19 | ECG_ITS ---
Test Reason : E66.01 Blood Pressure : */* mmHG Vent. Rate : 63 BPM Atrial Rate : 63 BPM P-R Int : 116 ms QRS Dur : 82 ms QT Int : 390 ms P-R-T Axes : 16 33 42 degrees QTcB Int : 399 ms Normal sinus rhythm with sinus arrhythmia Normal ECG No previous ECGs available Referred By: Brandon Fernandez Electronically Signed By: YOSHI GUSMAN MD
[2024-11-08 11:48] LABS: MANUAL DIFF FLAG NO
[2024-11-08 12:20] LABS: Basophils Percent Auto 0.2 % (0-2); Eosinophils Absolute Auto 0.2 X10*3/uL (0.0-0.4); Eosinophils Percent Auto 1.9 % (0-4); Hemoglobin 12.7 g/dl (12.0-16.0); Imm Gran Abs Auto 0.04 X10*3/uL (0.00-0.03); Imm Gran Pct Auto 0.4 % (0.0-0.4); Lymphocytes Absolute Auto 2.2 X10*3/uL (1.2-4.9); Lymphocytes Percent Auto 24.4 % (20-40); Mean Corpuscular Hemoglobin 26.5 pg (27.0-33.0); Mean Corpuscular Volume 85.4 fL (80.0-98.0); Mean Platelet Volume 9.9 fL (9.4-12.3); Monocytes Absolute Auto 0.6 X10*3/uL (0.1-1.2); Monocytes Percent Auto 6.3 % (2-11); Neutrophils Absolute Auto 5.9 x10*3/uL (2.0-8.3); Neutrophils Percent Auto 66.8 % (45-73); Platelet Count 332 X10*3/uL (160-400); Red Cell Distribution Width 15.9 % (11.0-16.0); White Blood Count 8.9 X10*3/uL (4.8-10.8)
[2024-11-08 12:23] LABS: Estimated Average Glucose 108 mg/dL; Hemoglobin A1C 117.5511 umol/L; Hemoglobin A1c % 5.4 % (<6.0); Total Hemoglobin (HGBA1C) 3333.5533 umol/L
[2024-11-08 12:48] LABS: Alanine Aminotransferase 41 U/L (0-31); Albumin Level 4.1 g/dL (3.5-5.0); Alkaline Phosphatase 97 U/L (39-117); Anion Gap 11 (12-20); Aspartate Amino Transferase 29 U/L (5-31); Bilirubin Total 0.4 mg/dL (0.0-1.0); Blood Urea Nitrogen 13 mg/dL (9-16); C Reactive Protein 0.48 mg/dL (< or = 0.50); Calcium 9.8 mg/dL (8.4-10.2); Carbon Dioxide 26 mmol/L (22-29); Chloride 107 mmol/L (96-108); Cholesterol 168 mg/dL (<200); Estimated Glomerular Filt Rate > 60; Glucose Random 88 mg/dL (60-115); HDL Cholesterol 58 mg/dL (>40); Iron 66 mcg/dL (30-160); LDL Cholesterol Calculated 98 mg/dL (<100); Percent Iron Saturation 19 % (15-50); Potassium 4.3 mmol/L (3.3-5.1); Sodium 140 mmol/L (135-145); Total Iron Binding Capacity 346 mcg/dL (228-428); Total Protein 7.6 g/dL (6.5-8.0); Triglycerides 62 mg/dL (<150); Unsaturated Iron Binding 280 ug/dL
[2024-11-08 13:04] LABS: Ferritin 13 ng/mL (10-122); Insulin 18 uU/mL (2-29); TSH reflex Free T4 1.47 uIU/mL (0.32-4.0); Vitamin D 25-OH Total 10.5 ng/mL (>30)
[2024-11-08 13:16] LABS: Folate 9.3 ng/mL (> or = 4.0); Vitamin B12 332 pg/mL (200-900)
[2024-11-12 03:19] LABS: Zinc 69 mcg/dL (60-130)
[2024-11-12 20:28] LABS: Vitamin A 49 mcg/dL (38-98)
[2024-11-16 06:08] LABS: Vitamin B1 14 nmol/L (8-30)
== END 2024-11-08 10:32 | disposition home or self-care (01) ==
LOC: HO.US 10:31
PROVIDERS: PCP Internal Medicine; Visit Provider Surgery
DX: E66.01 Morbid (severe) obesity due to excess calories (principal); K21.9 Gastro-esophageal reflux disease without esophagitis; Z13.1 Encounter for screening for diabetes mellitus
CPT/HCPCS: 36415; 71046; 76700; 76981; 80053; 80061; 82306; 82607; 82728; 82746; 83036; 83525; 83540; 84425; 84443; 84590; 84630; 85025; 86140; 93005

== ENCOUNTER → 2024-11-08 10:35 | Outpatient (BNV) | payer MEDICAID, SELFPAY | PROVIDERS: PCP Internal Medicine; Visit Provider Radiology Diagnostic Radiology | DX: N20.0 Calculus of kidney (principal); E66.01 Morbid (severe) obesity due to excess calories | CPT/HCPCS: 71046; 76700 ==

== ENCOUNTER → 2024-11-08 11:19 | Outpatient (BNV) | payer MEDICAID, SELFPAY | PROVIDERS: PCP Internal Medicine; Visit Provider Internal Medicine Cardiovascular Disease | DX: E66.01 Morbid (severe) obesity due to excess calories (principal) | CPT/HCPCS: 93010 ==

== ENCOUNTER → 2024-11-19 10:10 | Outpatient (BNVA) | payer MEDICAID, SELFPAY | PROVIDERS: PCP Internal Medicine; Visit Provider Counselor Mental Health ==

== ENCOUNTER → 2024-11-19 10:10 | Outpatient (AMB) | payer OTHER, SELFPAY ==
--- NOTE | 2024-11-19 10:05 | MHC.WMTHER ---
Intake Intake Visit Reasons: VIDEO BH F/U Allergies No Known Allergies Allergy (Verified 10/31/24 08:48) PFSH Medical History Anxiety GERD (gastroesophageal reflux disease) Morbid obesity History of rupture of uterus Surgical History Hx of hand surgery Hx of section Hx of wisdom tooth extraction Hx of cholecystectomy Family History Mother Endometriosis Father Family history unknown Son No problems noted. Son No problems noted. Social History Alcohol intake: current Alcohol intake frequency: holidays/special occasions only Patient Tobacco Use Status: Never used Tobacco Tobacco use type: Smokeless Tobacco e-Cigarette/Vaping Use: Currently Using Behavioral Health Assessment Weight Management Therapy Therapy Notes Details The patient is a 24-year-old female presenting for a second visit to complete a behavioral health assessment as part of the surgical weight loss program. She reports having struggled with obesity since childhood and has participated in various diet and meal programs throughout the years. Her goal is to lose weight while learning about healthy lifestyle changes and improving her eating behaviors to achieve long-term weight loss success. Currently, the patient attends counseling sessions biweekly via telehealth through [facility] which she began in June 2024 to address anxiety and stress. She denies being prescribed any medications for mental health concerns. The patient has no history of crisis situations or inpatient treatment for mental health issues. She denies any current concerns related to suicidal ideation, self-harm, or harm to others, and reports no history of substance use. Regarding her eating behaviors, the patient denies stress or emotional eating. She attributes her challenges to unhealthy eating habits learned during childhood. Scores from the BES suggest a low risk for binge eating. Additionally, PHQ scores indicate some mild active symptoms of depression. However, upon further discussion, she clarified that she is not experiencing an active depressive episode; her concerns are primarily related to life events that have triggered stress. A mental status exam revealed normal functioning, indicating that her overall mental health and cognitive functioning are not impaired. At this time, the patient is cleared from a behavioral health standpoint. She will return in one month for additional support, as she has been managing multiple life events that are impacting her commitment to the program. She seeks support with accountability and habit-building to stay on track. Presenting Concerns Referral Source Initially referred for WMP by her PCP. WMP Provider. Reason for referral Completion of behavioral health assessment as part of process for weight-loss surgery. Precipitating Event Obesity. Living Situation Current Living Situation Rent At risk of losing current housing? No Satisfied with current living situation? Yes Comments PT lives with her 2 children. Food/Weight/Diet Expectations of change The initial goal to lose 10% of your weight before surgery, which is about 29 lbs. Ultimate weight goal: 264lbs before surgery PT started weight as of 10/12/2024: 293Lbs Weight as of 11/15/2024: 284Lbs. PT is implementing the following: Current meal plan: 2 protein shakes, 2 protein bars, and one meal per day. Hasn't started. Exercise plan: Gym membership, not attending regularly, last week went 2 times. History/Relationship with food PT reports she doesn't drink soda due to Hx if kidney stones. PT reports that before started the phentermine she find herself eating all the time, snacking here and there and eating out most days. Due to her work schedule with long hours PT reports that growing up her mom worked a lot as a single mother so they eat a lot of freezer meals and multiple packed snacks. She states when stressed she has decreased appetite, and has never used food to either reward herself or uplift her mood. Example of meals before starting the program: Breakfast: Skip Lunch: Skip Dinner: a sandwich or homemade dinner: rice, beans, salad and meat. Snacks: None Drinks/Liquids: Water, juice. History/Relationship with weight PT reports she has always been overweigh since childhood. Pt reports when she was in 12 years old she was 185Lbs but when started HS she was over 200Lbs already. In the last 5 years, the patient's Lowest weight was 230Lbs and highest 315Lbs. PT reported she didn't gained much weight with both pregnancies'. She was depressed and anemic during these times and was not eating as much. History/Relationship with dieting PCP started her on Phentermine 375mg, around may 2024. She has lost about 20Lbs. 2023 - Herbalife shakes and teas with 1 meal at day. Did well did it together with the phentermine for a while. She stopped after 2 months in as it was expensive. PT reports she has been on and off on [employer] since [employer]. Binge Eating Do you frequently eat large amounts of food in short periods of time, not feeling physically hungry? No Do you feel out of control when you eat a large amount of food in a short period of time? No Do you eat large amounts of food rapidly and typically alone? No Night Eating Do you wake up at least once during the night to eat? No If you wake up in the night, do you find that it is necessary to eat something in order to fall back asleep? No Do you have little or no appetite in the morning and feel very hungry in the evening, often overeating between dinner and when you go to bed? No Social History Family history and relationship Single mother of 2. PT has 3 siblings on mom's side and 4 from dad's side. Parents are alive. PT reports she is very close to her mother and to siblings on mom's side. and States overall good family dynamics. 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 Developmental history and status None. Currently WNL Social support Mother, grandmother, and providers with weight-loss surgery. Also mom, grandmother and siblings with any social issue, as well of kids' father's sister. Community support PCP. Therapist. Orthodox/Spirituality None. Cultural/Ethnic information . [place] background. Legal Involvement and History Current or historical involvement with the legal system? None reported. Education Highest grade completed HS. bakery assistant. Preferred learning style Learn by doing Currently enrolled in educational program? Yes (working towards her Associate degree in [employer] science.) Interested in further educational program? No Educational Interests/Skills Become a mortician. Employment Employment Status School (full-time remote.) and Unemployed (for about 1 month. Interviewing for a new job. ) Wants help to find employment? No Meaningful activities Family activities. Financial Situation Describe current financial situation Comfortable Financial assistance? [employer] and Other ([employer], [employer]. ) Service Service? No Mental Health and Addiction Treatment Current/Past substance abuse? No Comments Alcohol: 1-2 times every 2 weeks. can have 5 -6 drinks. Cigarettes/Tobacco: PT vapes, uses a flavor nicotine based. Cannabis/Edibles: does Edibles 2 times at month. Current/Past addictive behavior concerns? No Psychiatric history The patient currently attends online counseling sessions every two weeks through the [facility]. They began these counseling services in June 2024 to address anxiety and stress. The patient denies being prescribed any medication for their mental health concerns. The patient reports no history of crisis or inpatient treatment for mental health issues. There are no current concerns regarding suicidal ideation, self-harm, or harm to others. Medical and Physical Health Summary Additional Medical History not covered in history None additional. Sexual History concerns None reported. Physical exam in the last year? Yes Pain Screening Current pain? No Pain in the last few months? No Medications Is the patient compliant with medications? Yes Does the patient have Inf[facility] Guardian in place? Not applicable Does the patient use complimentary health approaches? No Trauma/Abuse History History of trauma? No Questionnaires PHQ-9 Over the last 2 weeks, how often have you been bothered by any of the following problems? 1. Little interest or pleasure in doing things: not at all 2. Feeling down, depressed, or hopeless: several days 3. Trouble falling or staying asleep, or sleeping too much: more than half the days ( staying asleep triggered by the stress of not having a job.) 4. Feeling tired or having little energy: not at all 5. Poor appetite or overeating: more than half the days (Poor appetite due to phentermine.) 6. Feeling bad about yourself - or that you are a failure or have let yourself or your family down: not at all 7. Trouble concentrating on things, such as reading the newspaper or watching television: not at all 8. Moving or speaking so slowly that other people could have noticed. Or the opposite - being so fidgety or restless that you have been moving around a lot more than usual: not at all 9. Thoughts that you would be better off or of hurting yourself in some way: not at all Total score: 5 Depression Screening Interpretation: Positive Depression Screening Done: Yes 68866 - PHQ-9 Billing: Yes Source: Developed by Drs. Wang Welch, Tawanna White, Nadir Khan and colleagues, with an educational sergio from [employer]. Binge Eating Scale Group 1 A. I don't feel self-conscious about my wt. or body size when I'm with others. B. I feel concerned about how I look to others, but it normally does not make me fell disappointed with myself C. I do get self-conscious about my appearance and wt. which makes me feel disappointed in myself. D. I feel very self-conscious about my wt. and frequently I feel intense shame and disgust for myself. I try to avoid social contacts because of my self-consciousness. Response Group 1: A Group 2 A. I don't have any difficulty eating slowly in the proper manner. B. Although I seem to gobble down foods, I don't end up feeling stuffed because of eating to much. C. At times, I tend to eat quickly and then, I feel uncomfortably full afterwards. D. I have the habit of bolting down my food, without really chewing it. When this happens I usually feel uncomfortably stuffed because I've eaten to much. Response Group 2: A Group 3 A. I feel capable to control my eating urges when I want to. B. I feel like I have failed to control my eating more than the average person. C. I feel utterly helpless when it comes to feeling in control of my eating urges. D. Because I feel so helpless about controlling my eating I have become very desperate about trying to get control. Response Group 3: B Group 4 A. I don't have the habit of eating when I'm bored. B. I sometimes eat when I'm bored, but often I'm able to get busy and get my mind off food. C. I have a regular habit of eating when I'm bored, but occasionally, I can use some other activity to get my mind off eating. D. I have a strong habit of eating when I'm bored. Nothing seems to help me breath the habit. Response Group 4: C Group 5 A. I'm usually physically hungry when I eat something. B. Occasionally, I eat something on impulse even though I really am not hungry. C. I have the regular habit of eating foods, that I might not really enjoy, to satisfy a hungry feeling even though physically, I don't need the food. D. Although I'm not physically hungry, I get a hungry feeling in my mouth that only seems to be satisfied when I eat a food, like sandwich, that fills my mouth. Sometimes, when I eat the food to satisfy my mouth hunger, I then spit the food out so I won't gain weight. Response Group 5: B Group 6 A. I don't feel any guilt or self-hate after I overeat. B. After I overeat, occasionally I feel guilt or self-hate. C. Almost all the time I experience strong guilt or self-hate after I overeat. Response Group 6: B Group 7 A. I don't lose total control of my eating when dieting even after periods when I overeat. B. Sometimes when I eat a forbidden food on a diet, I feel like I blew it and eat even more. C. Frequently, I have the habit of saying to myself, I've blown it now, why not go all the way, when I overeat on a diet. When that happens I eat more. D. I have a regular habit of starting a strict diets for myself but I break the diets by going on an eating binge. My life seems to be either a feast or famine. Response Group 7: B Group 8 A. I rarely eat so much food that I feel uncomfortably stuffed afterwards. B. Usually about once a month, I each such a quantity of food, I end up feeling very stuffed. C. I have regular periods during the month when I eat large amounts of food, either at mealtime or at snacks. D. I eat so much food that I regularly feel quite uncomfortable after eating and sometimes a bit nauseous. Response Group 8: B Group 9 A. My level of calorie intake does not go up very high or go down very low on a regular basis. B. Sometimes after I overeat, I will try to reduce my caloric intake to almost nothing to compensate for the excess calories I've eaten. C. I have a regular habit of overeating during the night. It seems that my routine is not to be hungry in the morning but overeat in the evening. D. In my adult years, I have had week-long periods where I practically starve myself. This follows periods when I overeat. It seems I live a life of either feast or famine. Response Group 9: D Group 10 A. I usually am able to stop eating when I want to. I know when enough is enough. B. Every so often, I experience a compulsion to eat which I can't seem to control. C. Frequently, I experience strong urges to eat which I seem unable to control, but at other times I can control my eating urges. D. I feel incapable of controlling urges to eat. I have a fear of not being able to stop eating voluntarily. Response Group 10: A Group 11 A. I don't have any problem stopping eating when I feel full. B. I usually can stop eating when I feel full but occasionally overeat leaving me feeling uncomfortably stuffed. C. I have a problem stopping eating once I start and usually I feel uncomfortably stuffed after I eat a meal. D. Because I have a problem not being able to stop eating when I want, I sometimes have to induce vomiting to relieve my stuffed feeling. Response Group 11: B Group 12 A. I seem to eat just as much when I'm with others, Family social gatherings as when I'm by myself. B. Sometimes, when I'm with other persons, I don't eat as much as I want to eat because I'm self-conscious about my eating. C. Frequently, I eat only a small amount of food when others are present, because I'm very embarrassed about my eating. D. I feel so ashamed about overeating that I pick times to overeat when I know no one will see me. I feel like a closet eater. Response Group 12: C Group 14 A. I don't think much about trying to control unwanted eating urges. B. At least some of the time, I feel my thoughts are pre-occupied with trying to control my eating urges. C. I feel that frequently I spend much time thinking about how much I ate or about trying not to eat anymore. D. It seems to me that most of my waking hours are pre-occupied by thoughts about eating or not eating. I feel like I'm constantly struggling not to eat. Response Group 14: B Group 15 A. I don't think about food a great deal. B. I have strong craving for food but they last only for brief periods of time. C. I have days when I can't seem to think about anything else but food. D. Most of my days seem to be pre-occupied with thoughts about food. I feel like I live to eat. Response Group 15: B Group 16 A. I usually know whether or not I'm physically hungry. I take the right portion of food to satisfy me. B. Occasionally, I feel uncertain about knowing whether or not I'm physically hungry. A these times it's hard to know how much food I should take to satisfy me. C. Even though I might know how many calories I should eat, I don't have any idea what is a normal amount of food for me. Response Group 16: B Binge Eating Score: 16 Score less than 17 Minimal Risk Score between 18-26 Moderate Risk Score between 27-46 High Risk Assessment & Plan Assessment & Plan (1) Adjustment disorder with anxiety: Code(s): F43.22 - Adjustment disorder with anxiety Plan PT has been cleared from a behavioral health standpoint. However, she will follow up in one month for continued support and to monitor her commitment to the program's expectations. Next bita: 12/17/24 at 11am, TH Telehealth Telehealth Telehealth Platform: [facility] Location of provider rendering services: practice address Location of patient: address on file Patient Identification confirmed using: Name, : Yes Telehealth method: video Patient verbally consented to treatment: Yes Patient verbally consented to billing insurance company: Yes Patient informed of any privacy concerns related to visit: Yes Minutes spent on Phone/Video with Pt.: 55 Coding Level of Care Code Established Pt Tele Psytx >53 mins (43841) Patient Type Established Diagnoses Adjustment disorder with anxiety F43.22 Additional Codes PHQ-9 - 02950 - PHQ-9 Billing: Yes ([id number]) Time Spent (min) 55
--- OUTSIDE RECORDS SUMMARY | 2024-11-19 10:52 | XMS_ITS | Clinical Summary ---
Author Organization [facility] Address [address] [place] [address] Phone Care Team Providers Care Setter Up Name Role Phone Gilda Rodriguez MD Primary Care Provider [phone] Social History Tobacco Use Types Packs/Day Years Used Date Smoking Tobacco: Never Assessed Sex and Gender Information Value Date Recorded Sex Assigned at Not on file Gender Identity Not on file Sexual Orientation Not on file Plan of Treatment Health Maintenance Due Date Last Done Comments Gonorrhea/Chlamydia Screening 2001 HPV Vaccines (1 - 3-dose series) 2016 DTaP,Tdap,and Td Vaccines (1 - Tdap) 2020 Hepatitis B Vaccines (1 of 3 - 19+ 3-dose series) 2020 Cervical Cancer Screening: P ap Smear 2022 COVID-19 Vaccine ( - 2023-2 5 season) 2024 Influenza Vaccine (#1) 2024 HIB Vaccines Aged Out No longer eligi ble based on patient's age to complete this topic Hepatitis A Vaccines Aged Out No long er eligible based on patient's age to complete this topic IPV Vaccines Aged Out No longer eligi ble based on patient's age to complete this topic MMR Vaccines Aged Out No longer eligi ble based on patient's age to complete this topic Meningococcal ACWY Vaccine Aged Out N o longer eligible based on patient's age to complete this topic Pneumococcal Vaccine: Pediat rics (0 to 5 Years) and At-Risk Patients (6 to 64 Years) Aged Out No longer eligible b ased on patient's age to complete this topic RSV Immunization Patients Un kinza 20 months Aged Out No longer eligible b ased on patient's age to complete this topic Varicella Vaccines Aged Out No longer eligible based on patient's age to complete this topic Care Teams Setter Up Relationship Specialty Start Date End Date Gilda Rodriguez MD [address] [place] [address] [place] [id number] PCP - General Internal Medicine 10/19/24
--- OUTSIDE RECORDS SUMMARY | 2024-11-19 10:52 | XMS_ITS | Clinical Summary ---
Author Organization [facility] Address [address] [place] [address] Care Team Providers Care Magnetic Resonance Imaging Coordinator Name Role Phone Pcp, No MD Primary Care Provider Unavailabl e Allergies No known active allergies Medications oxyCODONE (ROXICODONE) 5 mg immediate release tablet Take 1 tablet (5 mg total) by mouth every 4 (four) hours as needed for severe pain (8-10). Max Daily Amount: 30 mg 8 tablet 07/06/2024 Active Active Problems Problem Noted Date Diagnosed Date Cholecystitis 07/04/2024 Acute cholecystitis 07/04/2024 Social History Tobacco Use Types Packs/Day Years Used Date Smoking Tobacco: Never Assessed [facility] Utilities Answer Date Recorded In the past 12 months has [facility] [employer], gas, oil, or water [employer] threatened to shut off services in your home? No 07/05/2024 Humiliation, Afraid, Rape, and Kick questionnair e Answer Date Recorded Within the last year, have y ou been afraid of your partner or ex-partner? No 07/05/2024 Within the last year, have y ou been humiliated or emotionally abused in other ways by your partner or ex-partner? No Within the last year, have y ou been kicked, hit, slapped, or otherwise physically hurt by your partner or ex-partner? No 07/05/2024 Within the last year, have y ou been raped or forced to have any kind of sexual activity by your partner or ex-partner? No 07/05/2024 Overall Financial Resource Strain (CARDIA) Answe r Date Recorded How hard is it for you to pa y for the very basics like food, housing, medical care, and heating? Not hard at all 07/05/2024 Hunger Vital Sign Answer Date Recorded Within the past 12 months, y ou worried that your food would run out before you got the money to buy more. Never true 07/05/20 24 Within the past 12 months, t he food you bought just didn't last and you didn't have money to get more. Never true 07/05/2024 PRAPARE - Transportation Answer Date Re corded In the past 12 months, has l ack of transportation kept you from medical appointments or from getting medications? No 07/05/2024 Lack of Transportation (Non-Medical) Not on file 07/05/2024 Housing Stability Vital Sign Answer Darian e Recorded Unable to Pay for Housing in the Last Year Not o n file 07/05/2024 Number of Times Moved in the Last Year Not on fi le 07/05/2024 At any time in the past 12 m [facility], were you homeless or living in a halfway (including now)? No 07/05/2024 Comments No Sex and Gender Information Value Date Recorded Sex Assigned at Not on file Legal Sex Female 4:08 AM EST Gender Identity Not on file Sexual Orientation Not on file Last Filed Vital Signs Vital Sign Reading Time Taken Comments Blood Pressure 119/61 07/06/2024 8:20 AM EDT Pulse 64 07/06/2024 8:20 AM EDT Temperature 37.2 ??C (99 ??F) 07/06/2024 8:20 AM EDT Respiratory Rate 18 07/06/2024 8:20 AM EDT Oxygen Saturation 98% 07/06/2024 8:20 AM EDT Inhaled Oxygen Concentration - - Weight 137 kg (302 lb) 07/06/2024 6:00 AM EDT Height 162.6 cm (5' 4 ) 07/04/2024 9:27 PM EDT Body Mass Index 51.84 07/04/2024 9:27 PM EDT Plan of Treatment Health Maintenance Due Date Last Done Comments Pneumococcal Vaccine: Pediat rics (0 to 5 Years) and At-Risk Patients (6 to 64 Years) (1 of 1 - PPSV23 or PCV20) 2007 03/11/2002, 2001, 2001 Chlamydia Screening 2017 Hepatitis C Screening 2019 Pap Smear 2022 COVID-19 Vaccine ( - 2023-2 5 season) 2024 Influenza Vaccine (#1) 2024 , 10/03/2023, 07/26/2022, Additional history exists DTaP,Tdap,and Td Vaccines (8 - Td or Tdap) 10/03/2033 10/03/2023, 11/26/2022, 09/26/2012, Additional history exists Zoster Vaccines (1 of 2) 2051 Hepatitis A Vaccines Completed 10/31/2009, 10/29/19 09 MMR Vaccines Completed 10/17/2017, 10/18, 10/26/2002 Meningococcal Vaccine Completed 08/10/2018, 012 HPV Vaccines Completed 09/18/2021, 10/18, 06/12/2020, Additional history exists Hepatitis B Vaccines Completed 07/29/2023, 10/17/2017, 07/06/2016, Additional history exists HIV Screening Completed 07/04/2024 Procedures Procedure Name Priority Date/Time Associated Diagnosis Comments HIV COMBO ANTIGEN/ANTIBODY Routine 07/04/2024 7:24 PM EDT from Last 3 Months or Most Recently Relevant to Health Maintenance Results * HIV combo antigen/antibody (07/04/2024 7:24 PM EDT) HIV Combo AB/AG Negative Negative 07/04/2024 8:18 PM EDT [facility] Blood Venous blood specimen / Unknown Venipuncture / Unknown 07/04/2024 7:24 PM EDT 07/04/2024 7:32 PM EDT Narrative [facility] - 07/04/2024 8:18 PM EDT This test is a 4th generation HIV Antigen-Antibody Combination assay, using a chemiluminescent microparticle immunoassay, for the simultaneous qualitative detection of human immuno- deficiency virus (HIV) p24 antigen and antibodies to HIV type 1 (HIV-1) and/or HIV type 2 (HIV-2) in human serum or plasma. The Needlenity HIV Ag/Ab Combo assay is intended to be used as an aid in the diagnosis of HIV-1 and/or HIV-2 infection, including acute or primary HIV-1 infection. Initially-positive tests are repeated in duplicate. Repeat-positive tests will be confirmed for HIV by a HIV-1/HIV-2 rapid supplemental/ differentiation antibody assay. This testing algorithm is in line with the current CDC recommendations. Prudencio Gupta MD LAB BLOOD ORDERABLES NO ST AT Final Result [facility] [address] [place] [address], from Last 3 Months or Most Recently Relevant to Health Maintenance Insurance Advance Directives For more information, please contact: [phone] * Full Code (Latest Code Status on File) Date Activated Date Inactivated Comments 07/04/2024 9:05 PM 07/06/2024 12:25 PM Care Teams Magnetic Resonance Imaging Coordinator Relationship Specialty Start Date End Date Cate Sandoval MD [address] [place] [address] PCP - General Internal Medicine 07/04/24
== END ==
PROVIDERS: PCP Internal Medicine; Visit Provider Counselor Mental Health
DX: F43.22 Adjustment disorder with anxiety (principal)
CPT/HCPCS: 90837

== ENCOUNTER 2025-01-07 09:42 | Outpatient (REF) | payer MEDICAID, SELFPAY ==
--- NOTE | ~2025-01-07 | FL_ITS ---
EXAMINATION: XR FLUOROSCOPY UPPER GI SERIES CLINICAL INFORMATION: Morbid obesity due to excess calories. COMPARISON: None TECHNIQUE: Fluoroscopic air contrast upper GI examination was performed utilizing standard techniques with thin and thick barium and effervescent granules. Numerous spot images were obtained. Several fluoroscopic image hold cine sequences were also obtained. FINDINGS: UPPER GI SERIES: Lateral cine images of the oropharynx and hypopharynx demonstrate normal swallow mechanism with normal epiglottic inversion and soft palate elevation. No tracheal penetration, glottic or subglottic aspiration identified. No nasopharyngeal reflux present. Hypopharyngeal structures appear normal without evidence of mass or diverticulum. There was no significant cricopharyngeal achalasia. Dual and single contrast images of the esophagus demonstrate normal caliber, contour, and mucosal pattern. No evidence of stricture, mass, or ulcerations identified. Esophageal peristalsis was normal. Tiny sliding hiatus hernia identified. Mild gastroesophageal reflux was seen during the course of the examination. Dual contrast and single contrast images of the stomach demonstrated normal contour, rugal fold pattern, and mucosal pattern without evidence of mass, ulceration, or other abnormality. Contrast freely passed into the gastric antrum and duodenal bulb without delay. Single and air-contrast images of the duodenal bulb demonstrate no abnormality. The duodenal sweep has a normal appearance, course, and mucosal fold appearance. Cholecystectomy clips are noted. FLUOROSCOPY TIME: 2 minutes, 38 seconds Number of Spot Images:9 Number of cines obtained: 12 DOSE AREA PRODUCT: 4105 uGy-m2 (microgray-meter squared) FL/FL upper GI w air IMPRESSION: 1. Mild gastroesophageal reflux identified. 2. Tiny type I hiatus hernia. 3. Otherwise, normal upper GI series. Electronically signed by: Mitchell Pena MD 01/07/2025 10:44 AM EDT
== END 2025-01-07 09:43 | disposition home or self-care (01) ==
LOC: HO.XRAY 09:42
PROVIDERS: PCP Internal Medicine; Visit Provider Surgery
DX: E66.01 Morbid (severe) obesity due to excess calories (principal); K21.9 Gastro-esophageal reflux disease without esophagitis
CPT/HCPCS: 74246

== ENCOUNTER → 2025-01-07 09:44 | Outpatient (BNV) | payer MEDICAID, SELFPAY | PROVIDERS: PCP Internal Medicine; Visit Provider Radiology Diagnostic Radiology | DX: K21.9 Gastro-esophageal reflux disease without esophagitis (principal) | CPT/HCPCS: 74246 ==

== ENCOUNTER 2025-05-29 10:28 | Outpatient (REF) | payer MEDICAID, SELFPAY ==
--- OUTSIDE RECORDS SUMMARY | 2025-05-29 11:16 | XMS_ITS | Clinical Summary ---
Author Organization [address] [place] [address] Address [address] [place] [address] Phone Care Team Providers Care Classifier Operator Name Role Phone Gilda Rodriguez MD Primary Care Provider [phone] Social History Tobacco Use Types Packs/Day Years Used Date Smoking Tobacco: Never Assessed Comments Unknown Sex and Gender Information Value Date Recorded Sex Assigned at Not on file Legal Sex Female 6:16 AM EST Gender Identity Not on file Sexual Orientation Not on file Plan of Treatment Health Maintenance Due Date Last Done Comments Gonorrhea/Chlamydia Screening 2001 Meningococcal B Vaccine (1 o f 2 - Standard) 2017 Hepatitis B Vaccines (1 of 3 - 19+ 3-dose series) 2020 Cervical Cancer Screening: P ap Smear 2022 COVID-19 Vaccine ( - 2023-2 5 season) 2024 Depression Screening 10/17/2024 Influenza Vaccine (#1) 2025 , 07/26/2022 DTaP,Tdap,and Td Vaccines (3 - Td or Tdap) 10/03/2033 10/03/2023, 11/26/2022 HPV Vaccines Completed 09/18/2021, 11/11/2020, 06/12/2020 HIB Vaccines Aged Out No longer eligi [...] age to complete this topic Pneumococcal Vaccine: Pediatrics (0 to 5 Years) and At-Risk Patients (6 to 49 Years) Aged Out No longer eligible b ased on patient's age to complete this topic RSV Immunization Patients Under 20 months Aged Out No longer eligible b ased on patient's age to complete this topic Varicella Vaccines Aged Out No longer eligible based on patient's age to complete this topic Care Teams Classifier Operator Relationship Specialty Start Date End Date Gilda Rodriguez MD [address] [place] [address] [place] [address] PCP - General Internal Medicine 10/19/24
--- OUTSIDE RECORDS SUMMARY | 2025-05-29 11:16 | XMS_ITS | Clinical Summary ---
Author Organization [address] Address [address] [place] [phone] Phone Care Team Providers Care Model And Pattern Supervisor Name Role Phone No, Pcp (Do Not Change Name) Primary Care Provid er Unavailable Allergies No known active allergies Medications metroNIDAZOLE (FLAGYL) 500 mg tabletIndicatio ns:STD (female),Acute vaginitis Take 1 tablet (500 mg total) by mouth 3 (three) times daily for 10 days. 30 tablet 04/30/2025 fluconazole (DIFLUCAN) 150 mg tabletIndicatio ns:STD (female),Acute vaginitis Take 1 tablet (150 mg total) by mouth once for 1 dose. 1 tablet 04/30/2025 Encounters Date Type Department Care Team Description 04/30/2025 5:00 PM EDT Office Visit [facility] [address] [place] [address] Martniez Pedroza PA STD (female) (Primary Dx); Acute vaginitis from Last 3 Months Social History Tobacco Use Types Packs/Day Years Used Date Smoking Tobacco: Never Tobacco Cessation:Counseling Given: Not Answered Alcohol Use Standard Drinks/Week Comments Yes 0 (1 standard drink = 0.6 oz pur e alcohol) Comments No Sex and Gender Information Value Date Recorded Sex Assigned at Not on file Legal Sex Female 7:17 PM EDT Gender Identity Not on file Sexual Orientation Not on file Last Filed Vital Signs Vital Sign Reading Time Taken Comments Blood Pressure 102/70 04/30/2025 5:10 PM EDT Pulse 73 04/30/2025 5:10 PM EDT Temperature 36.7 C (98.1 F) 04/30/2025 5:10 PM EDT Respiratory Rate 16 04/30/2025 5:10 PM EDT Oxygen Saturation 98% 04/30/2025 5:10 PM EDT Inhaled Oxygen Concentration - - Weight 138.3 kg (305 lb) 04/30/2025 5:10 PM EDT Height - - Body Mass Index - - Plan of Treatment Health Maintenance Due Date Last Done Comments Cervical cancer screening 2022 Covid-19 vaccine series () 06/17/2024 Influenza vaccine 06/17/2025 10/03/2023, , 07/14/2021, Additional history exists Chlamydia screening 04/30/2026 04/30/2025, DTaP/TDaP Vaccines (9 - Td or Tdap) 10/03/2033 10/03/2023, 11/26/2022, 09/26/2012, Additional history exists Tetanus adult (Td q 10,TDAP once) 10/03/2033 10/03/2023, 11/26/2022, 09/26/2012, Additional history exists Pneumococcal Vaccine (2 - 49 years) Aged Out 03/11/2002, 2001, 2001 No longer eligible based on patient's age to complete this topic HIB Vaccines Aged Out 10/18/2007, 02/15, 2001 No longer eligible based on patient's age to complete this topic IPV Vaccines Completed 10/18/2007, 10/18, 10/26/2002, Additional history exists Hepatitis A Vaccines Completed 10/31/2009, 10/29/19 09 Varicella Vaccines Completed 01/22/2011, 11/11/2003 MMR Vaccines Completed 10/17/2017, 10/18, 10/26/2002 Meningococcal Vaccine Completed 08/10/2018, 012 HPV vaccine series Completed 09/18/2021, 0 11/11/2020, 06/12/2020, Additional history exists Hepatitis B vaccine series Completed 07/29, 10/17/2017, 07/06/2016, Additional history exists RSV Immunization Completed 10/18/2023 HIV screening Completed 04/30/2025 Hepatitis C screening Completed 04/30/2025 Rotavirus Vaccines Aged Out No longer eligible based on patient's age to complete this topic Procedures Procedure Name Priority Date/Time Associated Diagnosis Comments POCT C. TRACHOMATIS / N. GONORRHOEAE DNA, CT/NG, URINE ([facility]) Routine 04/30/2025 5:54 PM EDT STD (female) SURESWAB ADVANCED VAGINITIS PLUS, TMA (ORANGE TUBE) (Q) STAT 04/30/2025 5:49 PM EDT STD (female) Acute vaginitis HSV 1/2 IGG, HERPESELECT TYPE SPECIFIC AB (L Q) Routine 04/30/2025 5:48 PM EDT RPR (DIAGNOSIS) WITH REFLEX TO TITER AND TREPONEMA PALLIDUM ANTIBODY, IA (Q) STAT 04/30/2025 5:48 PM EDT STD (female) Acute vaginitis HIV 1/2 AG/AB, W/REFLEXES (Q) STAT 04/30/2025 5:48 PM EDT STD (female) Acute vaginitis HEPATITIS C AB WITH REFLEX TO HCV PCR STAT 04/30/2025 5:48 PM EDT STD (female) Acute vaginitis HEPATITIS B SURFACE ANTIGEN W/REFL CONFIRM-CHECK (Q) STAT 04/30/2025 5:48 PM EDT STD (female) Acute vaginitis POCT URINALYSIS 10SG ([facility]) Routine 04/30/2025 5:23 PM EDT STD (female) POCT URINE ([facility]) Routine 04/30/2025 5:23 PM EDT STD (female) from Last 3 Months Results * POCT C. Trachomatis/ N. Gonorrhoeae DNA, CT/NG, Urine (04/30/2025 5:54 PM EDT) Chlamydia, DNA CT/NG, Urine Not Detected Not Detected Gonorrhoeae, DNA CT/NG, Urine Not Detected Not Detected POC Kit Lot Number [id number] POC Expiration Date [id number] Urine 04/30/2025 5:54 PM EDT Martinez YA POINT OF CARE ORDERS W/FUTURE Final Result * (ABNORMAL) [facility] Advanced Vaginitis Plus, TMA ([place] Tube) (Q) (04/30/2025 5:49 PM EDT) [facility](R) Advanced Bacterial Vaginosis (BV), TMA POSITIVE(A) NEGATIVE [facility] Kita Species NOT DETECTED NOT DETECTED [facility] Kita Glabrata NOT DETECTED NOT DETECTED [facility] Comment: Kita species C. albicans, C. tropicalis, C. parapsilosis, and/or C. dubliniensis can be detected, but not differentiated, in the Kita spp. result. Trichomonas vaginalis (TV), TMA NOT DETECTED NOT DETECTED [facility] C. trachomatis RNA, TMA NOT DETECTED NOT DETECTED [facility] Neisseria gonorrhoeae RNA, TMA NOT DETECTED NOT DETECTED [facility] Comment: For additional information, please refer to https://education.Pitz[employer]/faq/FZD626 (This link is being provided for information/ educational purposes only.) Vaginal 04/30/2025 5:49 PM EDT 05/01/2025 6:27 AM EDT Narrative Resulting Agency Comment Performing Lab: Site ID: [id number] Name: [facility] Address: [address] [place] [phone] Director: Nikko Steele M.D. [facility] YA BODY FLUIDS AND STOOLS ORDERA BLES Final Result [facility] [address] [place] [address] * HIV 1/2 ag/ab, w/reflexes (Q) (04/30/2025 5:48 PM EDT) Pathologist [facility] HIV-1 Final Interpretation [facility] Comment: HIV Negative HIV-1 antigen and HIV-1/HIV-2 antibodies were not detected. There is no laboratory evidence of HIV infection. HIV Ag/Ab, 4th Generation NON-REACT CONNIE NON-REACT CONNIE [facility] Blood 04/30/2025 5:48 PM EDT 05/01/2025 9:27 PM EDT Narrative Resulting Agency Comment Performing Lab: Site ID: [id number] Name: [facility] Address: [address] [place] [phone] Director: Nikko Steele M.D. [place] YA LAB BLOOD ORDERABLES Final Re sult Performing Organization Address [facility] de Phone Number [facility] [address] [place] [address] * Hepatitis B surface antigen w/refl confirm-check (Q) (04/30/2025 5:48 PM EDT) Hepatitis B Surface Ag NON-REACTI VE NON-REACT CONNIE [facility] Comment: For additional information, please refer to http://education.Pitzi/faq/AJI002 (This link is being provided for informational/ educational purposes only.) Blood 04/30/2025 5:48 PM EDT 05/01/2025 9:27 PM EDT Narrative Resulting Agency Comment Performing Lab: Site ID: [id number] Name: [facility] Address: [address] [place] [phone] Director: Nikko Steele M.D. [place] YA LAB BLOOD ORDERABLES Final Re sult Performing Organization Address [facility] de Phone Number [facility] [address] [place] [address] * RPR (Diagnosis) with reflex to titer and Treponema pallidum antibody, IA (Q) (04/30/2025 5:48 PM EDT) Rpr (Dx) W/Refl Titer And Confirmatory Testing NON-REACT CONNIE NON-REACT CONNIE [facility] Comment: No laboratory evidence of syphilis. If recent exposure is suspected, submit a new sample in 2-4 weeks. Blood 04/30/2025 5:48 PM EDT 05/01/2025 9:27 PM EDT Narrative Resulting Agency Comment Performing Lab: Site ID: [id number] Name: [facility] Address: [address] [place] [phone] Director: Nikko Steele M.D. Martinez YA LAB BLOOD ORDERABLES Final Re sult [facility] [address] * (ABNORMAL) HSV 1/2 IgG, herpeselect type specific Ab (L Q) (04/30/2025 5:48 PM EDT) [facility] HSV 1 IgG Type Specific Ab 32.10(H) index [facility] HSV 2 IgG Type Specific Ab <0.90 index [facility] Comment: Index Interpretation ----- <0.90 Negative 0.90-1.09 Equivocal >1.09 Positive This assay utilizes recombinant type-specific antigens to differentiate HSV-1 from HSV-2 infections. A positive result cannot distinguish between recent and past infection. If recent HSV infection is suspected but the results are negative or equivocal, the assay should be repeated in 4-6 weeks. The performance characteristics of the assay have not been established for pediatric populations, immunocompromised patients, or screening. For additional information, please refer to http://education.[employer]Stream[employer]/faq/MXH326 (This link is being provided for informational/ educational purposes only.) 04/30/2025 5:48 PM EDT 05/01/2025 9:29 PM EDT Narrative Resulting Agency Comment Performing Lab: Site ID: [id number] Name: [facility] Address: [address] [place] [phone] Director: Nikko Steele M.D. [place] YA LAB BLOOD ORDERABLES Final Re sult Performing Organization Address [facility] Co de Phone Number [facility] [address] [place] [address] * Hepatitis C Ab with reflex to HCV PCR (04/30/2025 5:48 PM EDT) Pathologist [facility] Hepatitis C Ab NON-REACT CONNIE NON-REACT CONNIE [facility] Comment: HCV antibody was non-reactive. There is no laboratory evidence of HCV infection. In most cases, no further action is required. However, if recent HCV exposure is suspected, a test for HCV RNA (test code 14483) is suggested. For additional information please refer to http://education.Pitzi/faq/INT44l7 (This link is being provided for informational/ educational purposes only.) Blood 04/30/2025 5:48 PM EDT 05/01/2025 9:27 PM EDT Narrative Resulting Agency Comment Performing Lab: Site ID: [id number] Name: [facility] Address: [address] [place] [phone] Director: Nikko Steele M.D. us Martinez YA LAB BLOOD ORDERABLES Final Re sult Performing Organization Address [facility] de Phone Number [facility] [address] [place] [address] * POCT Urine (In-Clinic) (04/30/2025 5:23 PM EDT) [facility] POC Test, Urine Negative Negative Line in Control Window? (+ Control) Yes POC Background Clear? (- Control) Yes POC Kit Lot Number [id number] POC Expiration Date [id number] Urine 04/30/2025 5:23 PM EDT us Martinez YA POINT OF CARE ORDERS W/FUTURE Final Result * POCT Urinalysis 10SG(In-Clinic) (04/30/2025 5:23 PM EDT) [facility] POC Leukocytes, UA Negative Negative POC Nitrites, UA Negative Negative POC Urobilinogen, UA Negative Negative POC Protein, UA Negative Negative POC pH, UA 6.0 5.0, 5.5, 6.0, 6.5, 7.0, 7.5, 8.0 POC Blood, UA Negative Negative POC Specific [place], UA 1.020 1.005, 1.010, 1.015, 1.020, 1.025, 1.030 POC Ketones, UA Negative Negative POC Bilirubin, UA Negative Negative POC Glucose, UA Negative Negative POC Clarity, UA Clear Clear POC Color, UA Yellow Yellow, Colorless POC Kit Lot Number, UA [id number] POC Expiration Date, UA [id number] Urine 04/30/2025 5:23 PM EDT Martinez YA POINT OF CARE ORDERS W/FUTURE Final Result from Last 3 Months Care Teams Model And Pattern Supervisor Relationship Specialty Start Date End Date No, Pcp (Do Not Change Name) PCP - General 04/30/25
--- OUTSIDE RECORDS SUMMARY | 2025-05-29 11:16 | XMS_ITS ---
Author Name [facility] Organization Unknown Results Test Name/Text Value Interpretation Date Range Source RH TYPE IN BLOOD POS Normal 07/05/2024 [facility] ANTIBODY SCREEN NEG Normal 07/05/2024 [facility] ABO GROUP (TYPE) IN BLOOD A Normal 07/05/2024 [facility] PHOSPHORUS 4.4 mg/dL Normal 07/05/2024 2.4 - 4.8 [facility] GLOMERULAR FILTRATION RATE ML/MIN/1.73 SQ M.PREDICTED 107.0 mL/min/1.73m*2 Normal 07/05/2024 60 - [facility] BILIRUBIN, TOTAL 0.4 mg/dL Normal 07/05/2024 0.1 - 1.2 [facility] UREA NITROGEN 8.0 mg/dL Normal 07/05/2024 8 - 24 [facility] CALCIUM, TOTAL 9.0 mg/dL Normal 07/05/2024 8.4 - 10.2 [facility] ALBUMIN, AUTOMATED 3.4 g/dL Below low normal 07/05/2024 3.8 - 5.3 [facility] GLUCOSE 83.0 mg/dL Normal 07/05/2024 70 - 200 [facility] ALT (SGPT) 211.0 U/L Above high normal 07/05/2024 8 - 39 [facility] ALKALINE PHOSPHATASE 111.0 U/L Normal 07/05/2024 39 - 113 [facility] POTASSIUM 3.9 mmol/L Normal 07/05/2024 3.6 - 5.1 [facility] CHLORIDE 108.0 mmol/L Normal 07/05/2024 100 - 111 [facility] PROTEIN TOTAL 5.6 g/dL Below low normal 07/05/2024 6.2 - 8. 1 [facility] AST (SGOT) 170.0 U/L Above high normal 07/05/2024 17 - 35 [facility] BICARBONATE 22.0 mmol/L Below low normal 07/05/2024 23 - 32 [facility] ANION GAP 8.0 mmol/L Normal 07/05/2024 3 - 11 [facility] SODIUM 138.0 mmol/L Normal 07/05/2024 137 - 144 [facility] CREATININE 0.8 mg/dL Normal 07/05/2024 0.6 - 1.2 [facility] MAGNESIUM 1.8 mg/dL Normal 07/05/2024 1.8 - 3 [facility] INR 1.1 ratio Normal 07/05/2024 0.9 - 1.1 [facility] PROTHROMBIN TIME (PT) 12.2 seconds Normal 07/05/2024 10.4 - 13 [facility] PLATELET COUNT 273.0 10*3/uL Normal 07/05/2024 150 - 440 [facility] RED CELL COUNT 4.55 10*6/ L Normal 07/05/2024 3.8 - 5.2 [facility] MCH 24.4 pg Below low normal 07/05/2024 26 - 34 [facility] HEMATOCRIT 37.3 % Normal 07/05/2024 35 - 47 [facility] MCV 82.0 fL Normal 07/05/2024 80 - 100 [facility] MCHC 29.8 g/dL Below low normal 07/05/2024 32 - 36 [facility] RBC DISTRIBUTION WIDTH 17.1 % Above high normal 07/05/2024 11.6 - 14.8 [facility] HEMOGLOBIN 11.1 g/dL Below low normal 07/05/2024 12 - 16 [facility] WHITE CELL COUNT 6.2 10*3/uL Normal 07/05/2024 3.6 - 11 [facility] AUTO NRBC % 0.0 % Normal 07/05/2024 0 - 0 [facility] POTASSIUM 3.5 mmol/L Below low normal 07/05/2024 3.6 - 5.1 [facility] AST (SGOT) 157.0 U/L Above high normal 07/05/2024 17 - 35 [facility] GLUCOSE QUAL Negative Normal 07/04/2024 - [facility] NITRITE Negative Normal 07/04/2024 - [facility] HEMOGLOBIN, URINE Negative Normal 07/04/2024 - [facility] CLARITY OF URINE Cloudy Abnormal 07/04/2024 - [facility] COLOR OF URINE Yellow Normal 07/04/2024 - [facility] LEUKOCYTE ESTERASE Negative Normal 07/04/2024 - [facility] PH OF URINE 8.0 Normal 07/04/2024 5 - 8 [facility] KETONES URINE 15.0 mg/dL Abnormal 07/04/2024 - [facility] PROTEIN QUAL Trace Normal 07/04/2024 - [facility] BILIRUBIN, URINE Negative Normal 07/04/2024 - [facility] SPECIFIC GRAVITY 1.025 Normal 07/04/2024 - [facility] UROBILINOGEN, URINE 1.0 EU/dL Normal 07/04/2024 0.2 - 1 [facility] HIV HOLD SPECIMEN LAV Normal 07/04/2024 [facility] HIV 1+2 AB + HIV1 P24 AG (PRESENCE) IN SERUM BY IMMUNOASSAY Negative Normal 07/04/2024 - [facility] LIPASE 12.0 U/L Normal 07/04/2024 8 - 51 [facility] SODIUM 138.0 mmol/L Normal 07/04/2024 137 - 144 [facility] CALCIUM, TOTAL 9.5 mg/dL Normal 07/04/2024 8.4 - 10.2 [facility] GLUCOSE 93.0 mg/dL Normal 07/04/2024 70 - 200 [facility] POTASSIUM Normal 07/04/2024 [facility] UREA NITROGEN 11.0 mg/dL Normal 07/04/2024 8 - 24 [facility] CHLORIDE 109.0 mmol/L Normal 07/04/2024 100 - 111 [facility] GLOMERULAR FILTRATION RATE ML/MIN/1.73 SQ M.PREDICTED 93.0 mL/min/1.73m*2 Normal 07/04/2024 60 - [facility] CREATININE 0.9 mg/dL Normal 07/04/2024 0.6 - 1.2 [facility] BICARBONATE 20.0 mmol/L Below low normal 07/04/2024 23 - 32 [facility] ANION GAP 9.0 mmol/L Normal 07/04/2024 3 - 11 [facility] ALKALINE PHOSPHATASE 112.0 U/L Normal 07/04/2024 39 - 113 [facility] BILIRUBIN, DIRECT Normal 07/04/2024 [facility] AST (SGOT) Normal 07/04/2024 [facility] PROTEIN TOTAL 7.2 g/dL Normal 07/04/2024 6.2 - 8.1 [facility] ALT (SGPT) 69.0 U/L Above high normal 07/04/2024 8 - 39 [facility] ALBUMIN, AUTOMATED 3.9 g/dL Normal 07/04/2024 3.8 - 5.3 [facility] BILIRUBIN, TOTAL 0.5 mg/dL Normal 07/04/2024 0.1 - 1.2 [facility] MCV 82.8 fL Normal 07/04/2024 80 - 100 [facility] RBC DISTRIBUTION WIDTH 17.1 % Above high normal 07/04/2024 11.6 - 14.8 [facility] MCH 25.8 pg Below low normal 07/04/2024 26 - 34 [facility] HEMATOCRIT 37.9 % Normal 07/04/2024 35 - 47 [facility] NEUTROPHIL % 72.4 % Above high normal 07/04/2024 40 - 70 [facility] WHITE CELL COUNT 12.2 10*3/uL Above high normal 07/04/2024 3 .6 - [address] 0.1 10*3/uL Normal 07/04/2024 0 - 0.3 [facility] BASOPHILS % 0.2 % Normal 07/04/2024 0 - 2 [facility] LYMPHOCYTE % 19.7 % Below low normal 07/04/2024 20 - 50 [facility] HEMOGLOBIN 11.8 g/dL Below low normal 07/04/2024 12 - 16 [facility] AUTO NRBC % 0.0 % Normal 07/04/2024 0 - 0 [facility] EOSINOPHIL % 0.7 % Normal 07/04/2024 0 - [address] [facility] 8.8 10*3/uL Above high normal 07/04/2024 1.4 - 6.[address] [facility] 2.4 10*3/uL Normal 07/04/2024 0.7 - 4.5 [facility] MCHC 31.1 g/dL Below low normal 07/04/2024 32 - 36 [facility] PLATELET COUNT 284.0 10*3/uL Normal 07/04/2024 150 - 440 [facility] MONOCYTE % 6.6 % Normal 07/04/2024 4 - 12 [facility] RED CELL COUNT 4.58 10*6/ L Normal 07/04/2024 3.8 - 5.2 [facility] IMMATURE GRANULOCYTE % 0.4 % Normal 07/04/2024 0 - 0.[address] [facility] [address] 0.8 10*3/uL Normal 07/04/2024 0.2 - 0.[address] [facility] 0.0 10*3/uL Normal 07/04/2024 0 - 0. 2 [facility] History of Medication Use Medication Directions Dispensed Refills Start Date End Date Stat us fluconazole (DIFLUCAN) 150 mg tablet Take 1 tablet (150 mg total) by mouth once for 1 dose. 04/30/2025 05/01/2025 completed metroNIDAZOLE (FLAGYL) 500 mg tablet Take 1 tablet (500 mg total) by mouth 3 (three) times daily for 10 days. 04/30/2025 active Problems Problem Status Onset Date Problem Type Date of Resolution Source Acute vaginitis active EncounterDiagnosisAct [facility] STD (female) active EncounterDiagnosisAct [facility] Encounter for immunization active 2023-07-29 ProblemAct [facility] Encounter for fitting and adjustment of unspecified device active 2024-04-20 ProblemAct [facility]PHYSON E Encounter for screening for respiratory tuberculosis active ProblemAct [facility] Acute cholecystitis active 2024-07-04 ProblemAct [facility] Cholecystitis active 2024-07-04 ProblemAct [facility] Immunizations Vaccine Date Source Lot Number Status 07/29/2023 [facility]_PH[facility]ONE [id number] completed Encounters Encounter Type Encounter Reason Primary Diagnosis Location Date Ambulatory Venereal disease, unspecified Venereal disease, unspecified [facility] 04/30/2025 Emergency Cholecystitis, unspecified Cholecystitis, unspecified Counts include 234 beds at the [facility] 07/04/2024 Care Team Organization Name Specialty Phone Email Start Date End Da te [facility] 04/30/2025 Counts include 234 beds at the [facility] NO PCP Primary Care 07/05/2024 Counts include 234 beds at the [facility] 07/05/2024 [facility] Not Found Primary Care 11/06/2023 [facility] 023 [facility] 023 07/26/2023
--- OUTSIDE RECORDS SUMMARY | 2025-05-29 11:16 | XMS_ITS | Clinical Summary ---
Author Organization [facility] Address [address] [place] [address] Care Team Providers Care Dry Plasterer Helper Name Role Phone Pcp, No MD Primary [...] Years Used Date Smoking Tobacco: Never Assessed [facility] Utilities Answer Date Recorded In the past 12 months has [facility] [employer], gas, oil, or water [employer] threatened to shut off services in your [...] any time in the past 12 m [facility], were you homeless or living in a residential (including now)? No 07/05/2024 Comments No Sex and Gender Information Value Date Recorded Sex Assigned at Not on file Legal Sex Female 4:08 AM EST Gender Identity Not on file Sexual Orientation Not on file Last Filed Vital Signs Vital Sign Reading Time Taken Comments Blood Pressure 119/61 07/06/2024 8:20 AM EDT Pulse 64 07/06/2024 8:20 AM EDT Temperature 37.2 C (99 F) 07/06/2024 8:20 AM EDT Respiratory Rate 18 07/06/2024 8:20 AM EDT Oxygen Saturation 98% 07/06/2024 8:20 AM EDT Inhaled Oxygen Concentration - - Weight 137 kg (302 lb) 07/06/2024 6:00 AM EDT Height 162.6 cm (5' 4 ) 07/04/2024 9:27 PM EDT Body Mass Index 51.84 07/04/2024 9:27 PM EDT Plan of Treatment Health Maintenance Due Date Last Done Comments Chlamydia Screening 2017 Hepatitis C Screening 2019 Pap Smear 2022 COVID-19 Vaccine ( season) 2024 Influenza Vaccine (#1) 2025 3, 10/03/2023, 07/26/2022, Additional history exists DTaP,Tdap,and Td Vaccines (9 - Td or Tdap) 10/03/2033 10/03/2023, 11/26/2022, 09/26/2012, Additional history exists Zoster Vaccines (1 of 2) 2051 Pneumococcal Vaccine: Pediatrics (0 to 5 Years) and At-Risk Patients (6 to 49 Years) Aged Out 03/11/2002, 2001, 2001 No longer eligible based on patient's age to complete this topic Hepatitis A Vaccines Completed 10/31/2009, 10/29/19 09 [...] AB/AG Negative Negative 07/04/2024 8:18 PM EDT [facility] Blood Venous blood specimen / Unknown Venipuncture / Unknown 07/04/2024 7:24 PM EDT 07/04/2024 7:32 PM EDT Narrative [facility] - 07/04/2024 8:18 PM EDT This test is a 4th generation HIV Antigen-Antibody Combination assay, using a chemiluminescent microparticle immunoassay, for the simultaneous qualitative detection of human immuno- deficiency virus (HIV) p24 antigen and antibodies to HIV type 1 (HIV-1) and/or HIV type 2 (HIV-2) in human serum or plasma. The [employer] HIV Ag/Ab Combo assay is intended to be used as an aid in the diagnosis of HIV-1 and/or HIV-2 infection, including acute or primary HIV-1 infection. Initially-positive tests are repeated in duplicate. Repeat-positive tests will be confirmed for HIV by a HIV-1/HIV-2 rapid supplemental/ differentiation antibody assay. This testing algorithm is in line with the current CDC recommendations. us Prudencio Gupta MD LAB BLOOD ORDERABLES NO ST AT Final Result [facility] [address] [place] [address], from Last 3 Months or Most Recently Relevant to Health Maintenance Insurance Advance Directives For more information, please contact: [phone] * Full Code (Latest Code Status on File) Date Activated Date Inactivated Comments 07/04/2024 9:05 PM 07/06/2024 12:25 PM Care Teams Dry Plasterer Helper Relationship Specialty Start Date End Date Cate Sandoval MD [address] [place] [address] PCP - General Internal Medicine 07/04/24
[2025-05-29 13:56] LABS: MANUAL DIFF FLAG NO
[2025-05-29 14:04] LABS: Hematocrit 39.0 % (37.0-47.0); Hemoglobin 12.1 g/dl (12.0-16.0); Imm Gran Abs Auto 0.04 X10*3/uL (0.00-0.03); Imm Gran Pct Auto 0.6 % (0.0-0.4); Lymphocytes Absolute Auto 2.1 X10*3/uL (1.2-4.9); Mean Corpuscular HGB Conc 31.0 g/dl (31.0-35.0); Mean Corpuscular Hemoglobin 26.4 pg (27.0-33.0); Mean Corpuscular Volume 85.2 fL (80.0-98.0); NRBC Abs Auto 0.000 X10*3/uL (0.0-0.012); NRBC Pct Auto 0.0 /100WBC (0.0-0.2); Platelet Count 299 X10*3/uL (160-400); Red Blood Count 4.58 X10*6/uL (4.20-5.50); White Blood Count 7.1 X10*3/uL (4.8-10.8)
[2025-05-29 14:23] LABS: Hemoglobin A1C 114.2840 umol/L; Total Hemoglobin (HGBA1C) 3270.1848 umol/L
[2025-05-29 14:44] LABS: Alanine Aminotransferase 28 U/L (0-31); Albumin Level 4.0 g/dL (3.5-5.0); Alkaline Phosphatase 93 U/L (39-117); Anion Gap 11 (12-20); Aspartate Amino Transferase 28 U/L (5-31); Blood Urea Nitrogen 10 mg/dL (9-16); Calcium 9.8 mg/dL (8.4-10.2); Carbon Dioxide 26 mmol/L (22-29); Chloride 108 mmol/L (96-108); Cholesterol 161 mg/dL (<200); Estimated Glomerular Filt Rate > 60; HDL Cholesterol 52 mg/dL (>40); Potassium 4.2 mmol/L (3.3-5.1); Sodium 141 mmol/L (135-145); Total Protein 6.7 g/dL (6.5-8.0); Triglycerides 71 mg/dL (<150)
[2025-05-29 14:48] LABS: Thyroid Stimulating Hormone 1.37 uIU/mL (0.32-4.0)
[2025-05-30 04:33] LABS: HBS Num1 556.52 mIU/mL (0-7.99); ~Hepatitis B Surface Antibody REACTIVE (Nonreactive)
[2025-05-30 14:43] LABS: Rubeola IgG (Measles) 167.00 AU/mL
[2025-06-01 11:54] LABS: TS Negative Control Passed; TS Panel A 0; TS Panel B 0; TS Positive Control Passed; TSpotTB Negative (Negative)
== END 2025-05-29 10:29 | disposition home or self-care (01) ==
LOC: HO.10HDL 10:28
PROVIDERS: Visit Provider Internal Medicine
DX: E66.01 Morbid (severe) obesity due to excess calories (principal); Z68.43 Body mass index [BMI] 50.0-59.9, adult; R74.01 Elevation of levels of liver transaminase levels; G47.33 Obstructive sleep apnea (adult) (pediatric)
CPT/HCPCS: 36415; 80053; 80061; 83036; 84443; 85025; 86481; 86706; 86735; 86762; 86765; 86787

== ENCOUNTER 2025-06-24 11:14 | Outpatient (AMB) | payer OTHER, SELFPAY ==
--- NOTE | 2025-06-24 11:10 | MHC.WMTHER ---
Intake Intake Visit Reasons: VIDEO BH F/U Allergies No Known Allergies Allergy (Verified 10/31/24 08:48) PFSH Medical History Anxiety GERD (gastroesophageal reflux disease) Morbid obesity History of rupture of uterus Surgical History Hx of hand surgery Hx of section Hx of wisdom tooth extraction Hx of cholecystectomy Family History Mother Endometriosis Father Family history unknown Son No problems noted. Son No problems noted. Social History Alcohol intake: current Alcohol intake frequency: holidays/special occasions only Patient Tobacco Use Status: Never used Tobacco Tobacco use type: Smokeless Tobacco e-Cigarette/Vaping Use: Currently Using Behavioral Health Assessment Weight Management Therapy Therapy Notes Details Patient is a 24-year-old female who has not been seen since November 2024. At that time, she was cleared from a behavioral health perspective but was scheduled for follow-up to address commitment, accountability, and habit-building to support her ongoing progress. Since then, the patient lost her job and experienced financial instability, which led her to pause participation in the program due to inability to afford necessary products. At this time, no significant mental health concerns have been reported that would impede her ability to move forward from a behavioral health standpoint. Provider will email the care team to clarify the patient?s current status and determine an appropriate follow-up plan. Presenting Concerns Referral Source Initially referred for WMP by her PCP. WMP Provider. Reason for referral Completion of behavioral health assessment as part of process for weight-loss surgery. Precipitating Event Obesity. Food/Weight/Diet Expectations of change PT started the program on 10/12/2024 at 293Lbs. The initial goal was to lose 10% of her weight before surgery, which is about 29 lbs. Ultimate weight goal: 264lbs before surgery. As of 11/15/24 PT reported to weight 284Lbs. However, PT stopped the program for several months and is now reestablishing care. PT reports her most recent weight as of today: 315Lbs. PT is implementing the following: Current meal plan: None. Exercise plan: None. Scale: yes. Communication with provider: PT texted him to re-establish care on 05/24/25. Mental Health and Addiction Treatment Psychiatric history PT has been out of counseling for 2 months, as her new schedule did not align with the therapist's options, also, PT reported that services were not helpful. Questionnaires PHQ-9 Over the last 2 weeks, how often have you been bothered by any of the following problems? 1. Little interest or pleasure in doing things: several days 2. Feeling down, depressed, or hopeless: not at all 3. Trouble falling or staying asleep, or sleeping too much: nearly every day (staying asleep as her kids wake up multiple times at night.) 4. Feeling tired or having little energy: more than half the days 5. Poor appetite or overeating: several days (overeating when skipping meals.) 6. Feeling bad about yourself - or that you are a failure or have let yourself or your family down: not at all 7. Trouble concentrating on things, such as reading the newspaper or watching television: not at all 8. Moving or speaking so slowly that other people could have noticed. Or the opposite - being so fidgety or restless that you have been moving around a lot more than usual: several days (fisgety/anxious-like) 9. Thoughts that you would be better off or of hurting yourself in some way: not at all Total score: 8 Depression Screening Interpretation: Positive Depression Screening Done: Yes 07098 - PHQ-9 Billing: Yes Source: Developed by Drs. Wang Welch, Tawanna White, Nadir Khan and colleagues, with an educational sergio from [employer]. Assessment & Plan Assessment & Plan (1) Adjustment disorder with anxiety: Code(s): F43.22 - Adjustment disorder with anxiety Plan Next appointment: To be determined. Telehealth Telehealth Telehealth [facility]: [facility] Location of provider rendering services: other (Home office. [place], [place]) Location of patient: address on file Patient Identification confirmed using: Name, : Yes Telehealth method: video Patient verbally consented to treatment: Yes Patient verbally consented to billing insurance company: Yes Patient informed of any privacy concerns related to visit: Yes Minutes spent on Phone/Video with Pt.: 42 Coding [place] [address] Tele Psytx 45 mins Patient Type Established Diagnoses Adjustment disorder with anxiety F43.22 Additional Codes PHQ-9 - 60844 - PHQ-9 Billing: Yes ([id number]) Time Spent (min) 42 Comment start time: 11:06am, end time: 11:48am.
--- OUTSIDE RECORDS SUMMARY | 2025-06-24 13:56 | XMS_ITS | Clinical Summary ---
Author Organization [address] [phone] Phone Care Team Providers Care Clinical Cytogeneticist Name Role Phone No, Pcp (Do Not Change Name) Primary Care Provid er Unavailable Allergies No known active allergies Medications No known medications Encounters Date Type Department Care Team Description 04/30/2025 5:00 PM EDT Office Visit [facility] [place] [address] [place] [address] Martinez Pedroza PA STD (female) (Primary Dx); Acute [...] Health Maintenance Due Date Last Done Comments Meningococcal B Vaccine (1 of 2 - Standard) 2017 Cervical cancer screening 2022 Covid-19 vaccine series ( season) 2025 Influenza vaccine 06/17/2025 10/03/2023, , 07/14/2021, Additional [...] TRACHOMATIS / N. GONORRHOEAE DNA, CT/NG, URINE ([facility]) Routine 04/30/2025 5:54 PM EDT STD (female) [...] STD (female) Acute vaginitis POCT URINALYSIS 10SG ([facility]) Routine 04/30/2025 5:23 PM EDT STD (female) POCT URINE ([facility]) Routine 04/30/2025 5:23 PM EDT STD (female) from Last 3 Months Results * POCT C. Trachomatis/ N. Gonorrhoeae DNA, CT/NG, Urine (04/30/2025 5:54 PM EDT) Chlamydia, DNA CT/NG, Urine Not Detected Not Detected Gonorrhoeae, DNA CT/NG, Urine Not Detected Not Detected POC Kit Lot Number [id number] POC Expiration Date [id number] Urine 04/30/2025 5:54 PM EDT Martinez YA POINT OF CARE ORDERS W/FUTURE Final Result * (ABNORMAL) SureSwab Advanced Vaginitis Plus, TMA ([employer]) (Q) (04/30/2025 5:49 PM EDT) SureSwab(R) Advanced Bacterial Vaginosis (BV), TMA POSITIVE(A) NEGATIVE [...] Comment: For additional information, please refer to https://education.[employer]/faq/NUZ174 (This link is being provided for information/ educational purposes only.) Vaginal 04/30/2025 5:49 PM EDT 05/01/2025 6:27 AM EDT Narrative Resulting Agency Comment Performing Lab: Site ID: [id number] Name: [facility] Address: [address] [place] [phone] Director: Nikko Steele M.D. [facility] YA BODY FLUIDS AND STOOLS ORDERA BLES Final Result [facility] [address] [place] [address] * HIV 1/2 ag/ab, w/reflexes (Q) (04/30/2025 5:48 PM EDT) Pathologist [facility] HIV-1 Final Interpretation [facility] Comment: HIV Negative HIV-1 antigen and HIV-1/HIV-2 antibodies were not detected. There is no laboratory evidence of HIV infection. HIV Ag/Ab, 4th Generation NON-REACT CONNIE NON-REACT CONNIE [facility] Blood 04/30/2025 5:48 PM EDT 05/01/2025 9:27 PM EDT Narrative Resulting Agency Comment Performing Lab: Site ID: [id number] Name: [facility] Address: [address] [place] [phone] Director: Nikko Steele M.D. Martinez YA LAB BLOOD ORDERABLES Final Re sult Performing Organization Address [facility] de Phone Number [facility] [address] [place] [address] * Hepatitis B surface antigen w/refl confirm-check (Q) (04/30/2025 5:48 PM EDT) Pathologist [facility] Hepatitis B Surface Ag NON-REACTI VE NON-REACT CONNIE [facility] Comment: For additional information, please refer to http://education.[employer]/faq/JWW777 (This link is being provided for informational/ educational purposes only.) Blood 04/30/2025 5:48 PM EDT 05/01/2025 9:27 PM EDT Narrative Resulting Agency Comment Performing Lab: Site ID: [id number] Name: [facility] Address: [address] [place] [phone] Director: Nikko Steele M.D. Martinez YA LAB BLOOD ORDERABLES Final Re sult Performing Organization Address [facility] de Phone Number [facility] [address] [place] [address] * RPR (Diagnosis) with reflex to titer and Treponema pallidum antibody, IA (Q) (04/30/2025 5:48 PM EDT) Pathologist [facility] Rpr (Dx) W/Refl Titer And Confirmatory Testing NON-REACT CONNIE NON-REACT CONNIE [facility] Comment: No laboratory evidence of syphilis. If recent exposure is suspected, submit a new sample in 2-4 weeks. Blood 04/30/2025 5:48 PM EDT 05/01/2025 9:27 PM EDT Narrative Resulting Agency Comment Performing Lab: Site ID: [id number] Name: [facility] Address: [address] [place] [phone] Director: Nikko Steele M.D. Martinez YA LAB BLOOD ORDERABLES Final Re sult Performing Organization Address [facility] Co de Phone Number [facility] [address] * (ABNORMAL) HSV 1/2 IgG, herpeselect type specific Ab (L Q) (04/30/2025 5:48 PM EDT) HSV 1 IgG Type Specific Ab 32.10(H) [...] screening. For additional information, please refer to http://education.[employer]/faq/LFS574 (This link is being provided for informational/ educational purposes only.) 04/30/2025 5:48 PM EDT 05/01/2025 9:29 PM EDT Narrative Resulting Agency Comment Performing Lab: Site ID: [id number] Name: [facility] Address: [address] [place] [phone] Director: Nikko Steele M.D. Martinez YA LAB BLOOD ORDERABLES Final Re sult Performing Organization Address [facility]/State/ZIP Co de Phone Number [facility] [address] * Hepatitis C Ab with reflex to HCV PCR (04/30/2025 5:48 PM EDT) Hepatitis C Ab NON-REACT CONNIE NON-REACT CONNIE [facility] Comment: HCV antibody was non-reactive. There is no laboratory evidence of HCV infection. In most cases, no further action is required. However, if recent HCV exposure is suspected, a test for HCV RNA (test code 55996) is suggested. For additional information please refer to http://education.[employer]/faq/LVM33r9 (This link is being provided for informational/ educational purposes only.) Blood 04/30/2025 5:48 PM EDT 05/01/2025 9:27 PM EDT Narrative Resulting Agency Comment Performing Lab: Site ID: [id number] Name: [facility] Address: [address] [place] [phone] Director: Nikko Steele M.D. us Martinez YA LAB BLOOD ORDERABLES Final Re sult [facility] [address] [place] [address] * POCT Urine (In-Clinic) (04/30/2025 5:23 PM EDT) POC Test, Urine Negative Negative Line in Control Window? (+ Control) Yes POC Background Clear? (- Control) Yes POC Kit Lot Number [id number] POC Expiration Date [id number] Urine 04/30/2025 5:23 PM EDT us Martinez YA POINT OF CARE ORDERS W/FUTURE Final Result * POCT Urinalysis 10SG(In-Clinic) (04/30/2025 5:23 PM EDT) POC Leukocytes, UA Negative Negative POC Nitrites, UA Negative Negative POC Urobilinogen, UA Negative Negative POC Protein, UA Negative Negative POC pH, UA 6.0 5.0, 5.5, 6.0, 6.5, 7.0, 7.5, 8.0 POC Blood, UA Negative Negative POC Specific [place], UA 1.020 1.005, 1.010, 1.015, 1.020, 1.025, 1.030 POC Ketones, UA Negative Negative POC Bilirubin, UA Negative Negative POC Glucose, UA Negative Negative POC Clarity, UA Clear Clear POC Color, UA Yellow Yellow, Colorless POC Kit Lot Number, UA [id number] POC Expiration Date, UA [id number] Urine 04/30/2025 5:23 PM EDT Martinez YA POINT OF CARE ORDERS W/FUTURE Final Result from Last 3 Months Care Teams Clinical Cytogeneticist Relationship Specialty Start Date End Date No, Pcp (Do Not Change Name) PCP - General 04/30/25
--- OUTSIDE RECORDS SUMMARY | 2025-06-24 13:56 | XMS_ITS | Clinical Summary ---
Author Organization [facility] Address [address] [place] [address] Care Team Providers Care Toe Trimmer Name Role Phone Pcp, No MD Primary [...] Years Used Date Smoking Tobacco: Never Assessed [facility] Utilities Answer Date Recorded In the past 12 months has [facility] [employer], gas, oil, or water [employer] threatened to shut off services in your [...] any time in the past 12 m [facility], were you homeless or living in a prison (including now)? No 07/05/2024 Comments No Sex [...] Pap Smear 2022 COVID-19 Vaccine ( season) 2025 Influenza Vaccine (#1) 2025 3, 10/03/2023, 07/26/2022, [...] AB/AG Negative Negative 07/04/2024 8:18 PM EDT [facility] Blood Venous blood specimen / Unknown Venipuncture / Unknown 07/04/2024 7:24 PM EDT 07/04/2024 7:32 PM EDT Narrative [facility] - 07/04/2024 8:18 PM EDT This test is a 4th generation HIV Antigen-Antibody Combination assay, using a chemiluminescent microparticle immunoassay, for the simultaneous qualitative detection of human immuno- deficiency virus (HIV) p24 antigen and antibodies to HIV type 1 (HIV-1) and/or HIV type 2 (HIV-2) in human serum or plasma. The [employer] HIV Ag/Ab Combo assay is intended to [...] BLOOD ORDERABLES NO ST AT Final Result [facility] [address] [place] [address], from Last 3 Months or Most Recently Relevant to Health Maintenance Insurance Advance Directives For more information, please contact: [phone] * Full Code (Latest Code Status on File) Date Activated Date Inactivated Comments 07/04/2024 9:05 PM 07/06/2024 12:25 PM Care Teams Toe Trimmer Relationship Specialty Start Date End Date Cate Sandoval MD [address] [place] [address] PCP - General Internal Medicine 07/04/24
--- OUTSIDE RECORDS SUMMARY | 2025-06-24 13:56 | XMS_ITS | Clinical Summary ---
Author Organization [address] [place] [address] Address [address] [place] [address] Phone Care Team Providers Care [employer] Gatherer Name Role Phone Gilda Rodriguez MD Primary Care Provider [phone] Social History Tobacco Use Types Packs/Day Years [...] Cervical Cancer Screening: P ap Smear 2022 Depression Screening 10/17/2024 COVID-19 Vaccine (1 - 2023-2 5 season) 2025 Influenza Vaccine (#1) 2025 , 07/26/2022 DTaP,Tdap,and [...] age to complete this topic Care Teams [employer] Gatherer Relationship Specialty Start Date End Date Gilda Rodriguez MD [address] [place] [address] [place] [address] PCP - General Internal Medicine 10/19/24
== END 2025-06-24 12:13 | disposition home or self-care (01) ==
LOC: HO.HBST 11:14
PROVIDERS: PCP Internal Medicine; Visit Provider Counselor Mental Health
DX: F43.22 Adjustment disorder with anxiety (principal)
CPT/HCPCS: 90834